=== PATIENT | female | born 1960 | race Caucasian/White ===

== ENCOUNTER 2024-07-22 11:30 | Emergency (ER) | payer MEDICAID, SELFPAY ==
--- NOTE | 2024-07-22 11:34 | XR_ITS ---
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
--- NOTE | 2024-07-22 11:34 | XR_ITS ---
Examination: CT brain head without contrast. 2-D sagittal coronal reconstructions Date and time of exam:July 22, 2024 1312 hours INDICATIONS: Multiple falls today with injury to head CTDI: vol (mGy):47.6 DLP: (mGycm):955 Technique: Multiple CT axial sections of the brain have been obtained, 5 mm slice thickness. Contrast has not been administered. 2-D sagittal, coronal reconstructions have been obtained Low dose protocols were performed. One or more of the following dose reduction techniques were used; automated exposure control, adjustment of the mA and/or KV according to patient size, use of iterative reconstruction technique. Findings: No significant ventricular enlargement. Intra-axial or extra-axial hemorrhage density is not seen. No mass effect or midline shift Basal cisterns are not remarkable. Fourth ventricle is midline. Cranial vault intact. Impression: Negative for acute hemorrhage, mass effect or midline shift
--- NOTE | 2024-07-22 11:34 | XR_ITS ---
Examination: CT cervical spine without contrast 2-D sagittal reconstructions 2-D coronal reconstructions 3-D reconstructions. Exam date and time:July 22, 2024 1312 hours INDICATIONS: Multiple falls today with injury to the neck, neck pain COMPARISON: June 13, 2024 CTDI:vol (mGy) 8.45 DLP: (mGycm) 195 Technique: Multiple 2 mm axial sections of the cervical spine have been obtained. The coronal and sagittal reconstructions have been obtained. 3-D reconstructions have been obtained. Low dose protocols were performed. One or more of the following dose reduction techniques were used; automated exposure control, adjustment of the mA and/or KV according to patient size, use of iterative reconstruction technique. Findings: Axial sections demonstrate intact base of the skull. Mild anterolisthesis C3 on C4 Advanced degenerative disc disease C5-C6 C6-C7 C1 exhibit satisfactory relationship to the odontoid. No acute cervical vertebral body fracture seen. Alignment posterior spinous processes satisfactory. Impression: No acute cervical fracture. Partial visualization left pleural fluid Very heavy calcification and stenosis right carotid artery, recommend correlation with carotid Doppler sonography follow-up
--- NOTE | 2024-07-22 11:34 | EKG_ITS ---
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1960 Requested By: John Levin Order Number: [id number] Reading MD: John Levin Measurements Intervals [place] Rate: 98 P: 60 NV: 152 QRS: 57 QRSD: 106 T: 65 QT: 352 QTc: 450 Interpretive Statements SINUS RHYTHM POSSIBLE LEFT ATRIAL ENLARGEMENT [-0.1mV P WAVE IN V1/V2] INCOMPLETE RIGHT BUNDLE BRANCH BLOCK [90+ ms QRS DURATION, TERMINAL R IN V1/V2, 40+ ms S IN I/aVL/V4/V5/V6] SEPTAL MYOCARDIAL INFARCTION , OF INDETERMINATE AGE [40+ ms Q WAVE IN V1/V2] Compared to ECG 03/10/2024 19:35:23 T-wave abnormality no longer present Possible ischemia no longer present Myocardial infarct finding still present /store/S0/[id number]/ecg/[id number].pdf
--- NOTE | 2024-07-22 11:36 | EDNOTE_ITS ---
ED General RME/HPI General Chief complaint: Fall Stated complaint: FALL Time Seen by Provider: 07/22/24 11:31 Arrival date/time: 07/22/24 11:30 CC: Left hip pain HPI patient presents to the ER via EMS who state the patient has had multiple falls this morning and is now complaining of left hip pain. The patient is an alcoholic and admits to drinking vodka every morning estimates drinking approximately 1 pint this morning already. Patient states she takes aspirin quite frequently but it does not prescribed. Patient denies headache shortness of breath difficulty breathing blurred vision nausea or vomiting. EMS reports stable vital signs also report the patient was ambulated to [facility]. Related Data Home Medications ?Medication ?Instructions ?Recorded ?Confirmed bupropion HCl 300 mg 24 hr tablet, 300 mg PO DAILY 12/07/22 03/11/24 extended release clonazepam 0.5 mg tablet 0.5 mg PO TID PRN Anxiety 09/26/23 03/11/24 cyclobenzaprine 10 mg tablet 10 mg PO HS 03/11/24 03/11/24 fluoxetine 10 mg capsule 20 mg PO QDAY 03/11/24 03/11/24 lamotrigine 25 mg tablet 50 mg PO DAILY 03/11/24 03/11/24 lurasidone 40 mg tablet (Latuda) 40 mg PO DAILY 03/11/24 03/11/24 Previous Rx's ?Medication ?Instructions ?Recorded nicotine 14 mg/24 hr daily 14 mg topical QDAY #28 ea 12/09/22 transdermal patch levothyroxine 150 mcg tablet 150 mcg PO ACBR 30 days #30 tabs 02/10/24 pantoprazole 40 mg tablet,delayed 40 mg PO QDAY #30 tabs 03/13/24 release (Protonix) Allergies Allergy/AdvReac Type Severity Reaction Status Date / Time codeine Allergy Severe Anaphylaxis Verified 12/29/23 08:26 Review of Systems Review of Systems Narrative Review of Systems: GEN: No fever, no chills, no weight loss EYES: No discharge, no visual changes, no pain HEENT: No ear pain, no congestion, no sore throat PULM: No shortness of breath, no cough, no congestion CV: No chest pain, no dyspnea on exertion, no palpitations GI: No nausea, no vomiting, no diarrhea, no pain, no constipation : No frequency, no urgency, no dysuria MUSC/SKEL: + Left hip pain, no other joint pain, no back pain SKIN: No rash PSYCH: No hallucinations, no depression HEME/LYMPH: No easy bleeding or bruising tendencies NEURO: No weakness, no headache Past Medical History Past Medical History NEUROLOGIC: Positive Head Trauma; Negative Neurological Disorders or Seizures CARDIAC: Negative Cardiac Disorders or Congestive Heart Failure RESPIRATORY: Positive Chronic Obstructive Pulmonary Disease (COPD), Asthma and Pneumonia GASTROINTESTINAL: Negative Gastrointestinal Disorders GENITOURINARY: Negative Genitourinary Disorders or Renal Disease MUSCULOSKELETAL: Positive Fractures (Left hip fracture, no surgery) ENT: Positive Head Trauma ENDOCRINE: Positive Endocrine Disorders, Hyperthyroidism and Hypothyroidism; Negative Diabetes Mellitus Type 1 or Diabetes Mellitus Type 2 HEMATOLOGIC: Positive Anemia; Negative Blood Disorders or Sickle Cell Disease PSYCHO/SOCIAL: Positive Recreational Drug Use (marijuana, alcohol), Depression and Anxiety OTHER HISTORY: Positive Falls; Negative Autoimmune Disease, Blood Transfusions, Blood Transfusion Reaction, Anesthesia Reactions, Clostridium Difficile or Cancer Surgical History SURGICAL: Positive Section; Negative Cardiac Surgery Social History SMOKING STATUS: Never smoker SECOND HAND EXPOSURE: No SUBSTANCE USE: does not use ED Exam Narrative Physical exam: [General: Awake alert mildly slurred speech oriented appears not in any acute distress Head normocephalic, no step-off hematoma induration ulceration or depression HEENT: Eyes pupils are PERRLA EOMs are intact no raccoon's eyes Azul sign no rhinorrhea or otorrhea mouth pink dry membranes uvula midline swallow symmetrical phonation is normal. All other subsystems of ATTR within acceptable limits Neck is supple nontender no JVD no edema Chest equal chest rise nontender to palpation Respiratory: Clear to auscultation no wheezes crackles or rubs CV: Rate rhythm is regular no murmurs rubs or clicks Abdomen is soft nontender no masses positive bowel sounds all 4 quadrants Back: No CVA tenderness no spinous process tenderness from cervical spine thoracic and lumbar spine Skin: Intact no petechiae rash induration ulceration or crepitus Extremities: Decreased range of motion of the left hip no pain with pelvic pressure or pelvic squeeze. Moving all other extremities against resistance cap refill less than 2 seconds neurosensory intact Neuro: Awake alert oriented x3 Glascow coma 15 no focal deficits] Course Quality Measures none Orders Category Date Time Status EKG (ED ONLY) *Do not use* NOW Care 07/22/24 11:[address] cervical spine wo con Stat Exams 07/22/24 11:[address] head/brain wo con Stat Exams 07/22/24 11:34 Completed EKG (ED Only) Stat Exams 07/22/24 11:34 Draft XR hip LT w pelvis 2-3V Stat Exams 07/22/24 11:34 Completed B-Type Natriuretic Peptide Stat Lab 07/22/24 11:55 Completed CBC Stat Lab 07/22/24 11:55 Completed Comprehensive Metabolic Panel Stat Lab 07/22/24 11:55 Completed Drug Screen,Urine Stat Lab 07/22/24 12:11 Completed LDH (Lactate Dehydrogenase) Stat Lab 07/22/24 11:55 Completed Magnesium Stat Lab 07/22/24 11:55 Completed Partial Thromboplastin Time Stat Lab 07/22/24 11:55 Completed Prothrombin Time with INR Stat Lab 07/22/24 11:55 Completed Troponin I Stat Lab 07/22/24 11:55 Completed Urinalysis Stat Lab 07/22/24 12:10 Completed Vital Signs Vital signs: Vital Signs Temperature 97.6 F 07/22/24 12:08 Pulse Rate 101 H 07/22/24 12:08 Respiratory Rate 16 07/22/24 12:08 Blood Pressure 106/76 07/22/24 12:08 Pulse Oximetry (%) 96 07/22/24 12:08 Oxygen Delivery Method Room Air 07/22/24 12:08 [facility] Patient data External records reviewed:: [facility] previous records and EMS form Clinical information provided by:: patient and EMS Social determinants that could affect healthcare access:: alcohol use Patient has the following chronic illnesses:: Anxiety depression alcoholism hypothyroidism How is presenting disease/condition affected by chronic disease/condition?: u neffected by Evaluation data The following diagnostics were reviewed and interpreted by me:: lab results, radiology exam(s) and EKG tracing(s) Lab and/or radiology exams considered but not ordered:: EKG performed at 1228 shows ventricular rate of 98 VA interval 152 QRS of 106 QTc of 407 sinus rhythm CBC shows no mild leukocytosis with mild anemia, no thrombocytopenia Coags within acceptable limits CMP shows no significant electrolyte imbalances renal impairment transaminitis or T. bili elevation Troponin is negative BNP is negative Urine is negative for UTI Urine UDS is positive for opiates and THC. CT head C-spine is interpreted me read by radiology negative for any acute finding. Interpretation Summary: Fall, hip contusion Medications Medications considered but not ordered:: None Medication administrations:: None Consultations Consultation(s) initiated? (list below): No Diagnosis Differential Diagnosis ED Complaint MDM: Closed head injury neck fracture hip fracture Most likely diagnosis given after review of the tests above:: Fall polysubstance abuse hip contusion Admission Indicated Admission indicated?: not indicated Explain why admission is indicated or not indicated:: Stable for outpatient follow-up Admission Request Was there a request for admission?: No Disposition Plan Disposition Plan: Discharge Discharge Attestation Discharge Attestation: The patient and all family members were given an opportunity to ask questions and understood the discharge instructions. Discharge instructions specifically effects, indications for sooner follow up or return to the emergency department, and the expected course of current diagnosis. Patient condition: Stable Medical Decision Making Differential Diagnosis Differential Diagnosis: Closed head injury neck fracture hip fracture Lab Data 07/22/24 11:55 07/22/24 11:55 Labs: Lab Results 07/22/24 07/22/24 07/22/24 Range/Units 11:55 12:10 12:11 WBC 12.1 H (3.6-11.0) Thou/mm3 RBC 2.96 L (4.00-5.20) Miln/mm3 Hgb 10.7 L (12.0-16.0) g/dL Hct 31.3 L (36.0-46.0) % MCV 106 H (80-100) fL MCH 36.1 H (25.0-35.0) pg MCHC 34.2 (31.0-37.0) g/dl RDW Std Deviation 66.1 H (36.4-46.3) fL Plt Count 575 H D (140-440) Thou/mm3 Neut % (Auto) 68 (37-80) % Lymph % (Auto) 22 (10-50) % [place] % (Auto) 8 (0-12) % Eos % (Auto) 0 (0-10) % Baso % (Auto) 1 (0-2.5) % Neut # (Auto) 8.2 H (1.8-7.7) Thou/mm3 Lymph # (Auto) 2.7 (1.0-4.8) Thou/mm3 [place] # (Auto) 1.0 H (0.0-0.8) Thou/mm3 Eos # (Auto) 0.1 (0.0-0.5) Thou/mm3 Baso # (Auto) 0.1 (0.0-0.2) Thou/mm3 Immature Gran # (Auto) 0.09 H (0.00-0.00) Thou/mm3 Absolute Nucleated RBC 0.00 (0.00-0.00) Thou/mm3 Immature Gran % 1 H (0-0) % Nucleated RBC % 0 (0) /100 WBC PT 10.6 (9.0-12.2) Seconds INR 1.0 (0.9-1.3) APTT 29.2 (22.0-36.0) Seconds Sodium 136 (136-145) mMol/L Potassium 3.7 (3.4-5.1) mMol/L Chloride 97 L (98-107) mMol/L Carbon Dioxide 24.9 (20.0-31.0) mMol/L Anion Gap 14 (7-16) BUN 8 L (9-23) mg/dL Creatinine 0.5 L (0.6-1.3) mg/dL Estim Creat Clear Calc 111.5 (>60) mL/min eGFR > 60 (60 - ) See Note BUN/Creatinine Ratio 16 (12-20) Ratio Glucose 85 (74-106) mg/dL Calculated Osmolality 269 L (275-295) Calcium 9.1 (8.3-10.6) mg/dL Corrected Calcium 9.1 (8.5-10.1) mg/dL Magnesium 1.9 (1.6-2.6) mg/dL Total Bilirubin 0.4 (0.3-1.2) mg/dL AST 33 (0-34) U/L ALT 13 (10-49) U/L Alkaline Phosphatase 93 (46-116) U/L Lactate Dehydrogenase 230 (120-246) U/L Troponin I < 0.020 (0.0-0.045) ng/mL B-Natriuretic Peptide 42 (0-100) pg/mL Total Protein 6.8 (5.7-8.2) gm/dL Albumin 4.3 (3.4-4.8) gm/dL Globulin 2.5 (2.3-3.5) gm/dL Albumin/Globulin Ratio 1.7 (1.2-2.2) Ur Collection Type Clean Catch Urine Color Yellow (Lt Yel-Yel) Urine Clarity Clear (Clear/Hazy) Urine pH 6.5 (5.0-7.0) Ur Specific [place] 1.025 (1.001-1.035) Urine Protein Trace (Neg - Trace) Urine Glucose (UA) Negative (Negative) Urine Ketones Negative (Negative) Urine Blood 1+ A (Negative) Urine Nitrite Negative (Negative) Urine Bilirubin Negative (Negative) Urine Urobilinogen (Auto) Negative (0.0-1.0) mg/dL Ur Leukocyte Esterase Negative (Negative) Urine RBC 3 (0-3) /hpf Urine WBC 2 (0-5) /hpf Ur Squamous Epith Cells 1 (0-5) /hpf Urine Bacteria None (None) Urine Opiates Screen Positive A (Negative) Urine Fentanyl Screen Negative (Negative) Ur Barbiturates Screen Negative (Negative) U Amphetamin/Meth Scrn Negative (Negative) U Benzodiazepines Scrn Negative (Negative) U Cocaine Metab Screen Negative (Negative) U Marijuana (THC) Screen Positive A (Negative) Discharge Plan Plan Patient Disposition: HOME (Self Care) Patient condition on transfer: Stable Prescriptions/Referrals Prescriptions/Med Rec: No Action clonazepam 0.5 mg tablet 0.5 mg PO TID PRN (Reason: Anxiety) bupropion HCl 300 mg tablet extended release 24 hr 300 mg PO DAILY Patient Comments: take 1 tablet by mouth once daily nicotine 14 mg/24 hr patch 24 hour 14 mg topical QDAY Qty: 28 0RF fluoxetine 10 mg Capsule 20 mg PO QDAY lamotrigine 25 mg Tablet 50 mg PO DAILY cyclobenzaprine 10 mg Tablet 10 mg PO HS lurasidone [Latuda] 40 mg Tablet 40 mg PO DAILY Rx Instructions: take with 350 caloric food pantoprazole [Protonix] 40 mg tablet,delayed release (DR/EC) 40 mg PO QDAY Qty: 30 1RF levothyroxine 150 mcg Tablet 150 mcg PO ACBR 30 Days Qty: 30 2RF Referrals: Tavares Saul MD [Primary Care Provider] - In 1 week Problem List Clinical Impression: Fall, Contusion of hip, Polysubstance abuse Patient/Caregiver Discharge Instructions Education Materials: Understanding the Disease of Addiction, Bone Contusion, ED Fall with Uncertain Cause Additional Instructions: Avoid THC alcohol and opioids follow-up with your primary care provider. Print Language: Ukrainian Stand Alone Forms: Rosa Isela Award Info., Work/School Release, Patient Portal Info Letter Attestation MD Attestation The patient was seen by the midlevel practitioner. I, the co-signing physician, was present during the entire ER visit. While I did not physically examine the patient, I was available for consultation as needed.
[2024-07-22 11:40] VITALS: PULSE 99; O2SAT 98; BMI 20.8
[2024-07-22 12:08] VITALS: BP 106/76; PULSE 101; RESP 16; TEMP 36.4; O2SAT 96
[2024-07-22 12:11] LABS: Basophils # (Auto) 0.1 Thou/mm3 (0.0-0.2); Basophils % (Auto) 1 % (0-2.5); Eosinophils # (Auto) 0.1 Thou/mm3 (0.0-0.5); Eosinophils % (Auto) 0 % (0-10); Hematocrit 31.3 % (36.0-46.0); Hemoglobin 10.7 g/dL (12.0-16.0); Immature Granulocytes % (Auto) 1 % (0-0); Immature Granulocytes Auto 0.09 Thou/mm3 (0.00-0.00); Lymphocytes # (Auto) 2.7 Thou/mm3 (1.0-4.8); Lymphocytes % (Auto) 22 % (10-50); Mean Corpuscular HGB Conc 34.2 g/dl (31.0-37.0); Mean Corpuscular Hemoglobin 36.1 pg (25.0-35.0); Mean Corpuscular Volume 106 fL (80-100); Monocytes % (Auto) 8 % (0-12); Neutrophils # (Auto) 8.2 Thou/mm3 (1.8-7.7); Neutrophils % (Auto) 68 % (37-80); Nucleated Red Blood Cell % 0 /100 WBC (0); Platelet Count 575 Thou/mm3 (140-440); RDW Standard Deviation 66.1 fL (36.4-46.3); Red Blood Count 2.96 Miln/mm3 (4.00-5.20); White Blood Count 12.1 Thou/mm3 (3.6-11.0)
[2024-07-22 12:16] LABS: Collection Type, Urine Clean Catch
[2024-07-22 12:19] LABS: Bilirubin,Urine Negative (Negative); Blood,Urine 1+ (Negative); Clarity,Urine Clear (Clear/Hazy); Color,Urine Yellow (Lt Yel-Yel); Glucose, Urine Negative (Negative); Ketones,Urine Negative (Negative); Leukocyte Esterase,Urine Negative (Negative); Nitrite,Urine Negative (Negative); PH,Urine 6.5 (5.0-7.0); Protein,Urine Trace (Neg - Trace); RBC,Urine 3 /hpf (0-3); Specific Gravity,Urine 1.025 (1.001-1.035); Squamous Epithelial Cell,Urine 1 /hpf (0-5); Urobilinogen,Urine Negative mg/dL (0.0-1.0); WBC,Urine 2 /hpf (0-5)
[2024-07-22 12:25] LABS: Partial Thromboplastin Time 29.2 Seconds (22.0-36.0); Prothrombin Time 10.6 Seconds (9.0-12.2)
--- NOTE | 2024-07-22 12:29 | PC.NURSE ---
PT BROUGHT IN BY AMBULANCE AFTER FALL AT HOME. PER REPORT PT DID ADMIT TO DRINKING 1 PINT OF VODKA DAILY. PT DOES C/O PAIN TO THE LEFT HIP AND DID STATE TO HAVE A LEFT HIP FX. PT STATES THAT SHE WAS AT [facility] RECENTLY AFTER FALL AND 6 BROKEN RIBS. PT IS A/O X4 AND A GCS OF 15. PT DOES C/O PAIN TO LEFT HIP AND RATES IT AT 8/10 AT THIS TIME. MAGDALENE WILEY SEEN PT IN AMBULANCE BAY FOR ASSESSMENT. WILL FOLLOW THROUGH WITH ORDERS.
[2024-07-22 12:31] LABS: Amphetamine/Methamp Scrn,U Negative (Negative); Barbiturate Screen,Urine Negative (Negative); Benzodiazepines Screen,Urine Negative (Negative); Benzoylecgonine Screen, Ur Negative (Negative); Fentanyl Screen,Urine Negative (Negative); Opiate Screen,Urine Positive (Negative); THC Screen,Urine Positive (Negative)
[2024-07-22 12:33] LABS: Alanine Aminotransferase 13 U/L (10-49); Albumin, Serum 4.3 gm/dL (3.4-4.8); Albumin/Globulin Ratio 1.7 (1.2-2.2); Alkaline Phosphatase 93 U/L (46-116); Anion Gap 14 (7-16); Aspartate Amino Transferase 33 U/L (0-34); BUN/Creatinine Ratio 16 Ratio (12-20); Bilirubin,Total 0.4 mg/dL (0.3-1.2); Blood Urea Nitrogen 8 mg/dL (9-23); Calcium 9.1 mg/dL (8.3-10.6); Calcium (Corrected) 9.1 mg/dL (8.5-10.1); Carbon Dioxide 24.9 mMol/L (20.0-31.0); Chloride 97 mMol/L (98-107); Creatinine (Component) 0.5 mg/dL (0.6-1.3); Estimated Creatinine Clearance 111.5 mL/min (>60); Globulin 2.5 gm/dL (2.3-3.5); Glucose 85 mg/dL (74-106); LDH (Lactate Dehydrogenase) 230 U/L (120-246); Magnesium 1.9 mg/dL (1.6-2.6); Osmolality,Calculated 269 (275-295); Potassium 3.7 mMol/L (3.4-5.1); Sodium 136 mMol/L (136-145); Total Protein 6.8 gm/dL (5.7-8.2); Troponin I < 0.020 ng/mL (0.0-0.045); eGFR > 60 See Note
[2024-07-22 12:34] LABS: B-Type Natriuretic Peptide 42 pg/mL (0-100)
[2024-07-22 14:23] VITALS: BP 131/73; PULSE 97; O2SAT 95
== END 2024-07-22 14:26 | disposition home or self-care (01) ==
PROVIDERS: Registered Nurse General Practice; Emergency Provider Emergency Medicine; PCP Family Medicine
DX: S70.02XA Contusion of left hip, initial encounter (principal); F19.10 Other psychoactive substance abuse, uncomplicated; S09.90XA Unspecified injury of head, initial encounter; S19.9XXA Unspecified injury of neck, initial encounter; I45.10 Unspecified right bundle-branch block; W19.XXXA Unspecified fall, initial encounter
CPT/HCPCS: 36415; 70450; 72125; 73502; 80053; 80307; 81001; 83615; 83735; 83880; 84484; 85025; 85610; 85730; 93005; 99284

== ENCOUNTER 2024-08-02 08:43 | Outpatient (AMB) | payer MEDICARE, MEDICAID, SELFPAY ==
[2024-08-02 09:21] VITALS: BP 176/95; PULSE 56; RESP 19; TEMP 36.3; O2SAT 95; BMI 22.3
--- NOTE | 2024-08-02 09:21 | PD.ORTHCLVIS ---
Vital signs 08/02/24 09:21 Height 1.73 m Height Method Stated Weight 66.82 kg Weight Measurement Method Standing Scale BMI 22.3 BP 176/95 H Blood Pressure Source Automatic Cuff Blood Pressure Location Right Upper Arm Position Sitting Respiration 19 Pulse 56 L Pulse Source Monitor Temp 97.3 F Temp Source Temporal Artery Scan Pulse Oximetry (%) 95 Oxygen Delivery Method Room Air Med/Allergies Allergies & Medications Allergies codeine Allergy (Severe, Verified 08/02/24 09:22) Anaphylaxis Medication Reconciliation bupropion HCl 300 mg 24 hr tablet, extended release 300 mg PO DAILY 12/07/22 [History Confirmed 08/02/24] nicotine 14 mg/24 hr daily transdermal patch 14 mg topical QDAY #28 ea 12/09/22 [Rx Confirmed 08/02/24] clonazepam 0.5 mg tablet 0.5 mg PO TID PRN Anxiety 09/26/23 [History Confirmed 08/02/24] levothyroxine 150 mcg tablet 150 mcg PO ACBR 30 days #30 tabs 02/10/24 [Rx Confirmed 08/02/24] cyclobenzaprine 10 mg tablet 10 mg PO HS 03/11/24 [History Confirmed 08/02/24] fluoxetine 10 mg capsule 20 mg PO QDAY 03/11/24 [History Confirmed 08/02/24] lamotrigine 25 mg tablet 50 mg PO DAILY 03/11/24 [History Confirmed 08/02/24] lurasidone 40 mg tablet (Latuda) 40 mg PO DAILY 03/11/24 [History Confirmed 08/02/24] pantoprazole 40 mg tablet,delayed release (Protonix) 40 mg PO QDAY #30 tabs 03/13/24 [Rx Confirmed 08/02/24] Subjective Visit Visit for: follow up visit Immunization / Flu Flu Vaccine in the Last 12 Months: No Flu Vaccine Exclusion Criteria: No Exclusion Criteria History of Present Illness Chief complaint: WORSENING HIP PAIN Patient is a 63-year-old female with a ground-level fall . She had an MRI that demonstrated intertrochanteric fracture. This was treated nonoperatively. She does have bilateral hip osteoarthritis as well. She has had a longstanding history of bilateral hip pain and groin pain. She reports the pain is worse on the left hip. There is a lot of pain in the groin thigh as well as the knee. She reports the last knee injections have helped tremendously. Since we last saw her, she had another fall. She reports the left hip pain is excruciating. It is affecting her quality life and happiness. She cannot put on socks and shoes. She has tried anti-inflammatories Personal History Occupation: na Hobbies: reading [employer] PMH: smoker and cigarettes qd (specify) (1 pack a day) Pain Pain level (0-10): 8 Pain duration: CONSTANT Pain location: groin Pain quality: sharp, dull and aching Pain timing: increases with activity Associated signs & symptoms: stiffness Ambulatory data Ambulatory device: none Treatments Number of previous injections: 1 Improvement with previous injections: No Number of Physical Therapy sessions: 0 Improvement with PT: No Improvement with NSAIDS: n/a Review of Systems Review of Systems: All systems negative unless otherwise noted in HPI. Exam Exam Patient is in no acute distress and is cooperative with the examination today. Patient has a normal mood and affect. Breathing is nonlabored. In no respiratory distress. Bilateral extremities were evaluated and demonstrates sensation intact to light touch. Palpable pedal pulses are present. No significant edema is present. Right hip is painful with logroll. Leg lengths are equal. She is tender with rotation of internal rotation as well as 20 degrees of external rotation Left hip is also painful with logroll. She is 10 degrees internal rotation is painful as we ll as 30 degrees of external rotation. Left knee range of motion 0 to 110 degrees. She is tender to palpation medially X-rays of the knee and hip were reviewed. The x-rays demonstrate Mild joint space narrowing of the left knee. X-rays of bilateral hips demonstrate severe joint space narrowing and complete obliteration of the joint space Bilaterally. There is a fracture of the greater trochanter On the left that is displaced. The CT scan of the hip from 12/28/2023 demonstrates an isolated greater trochanteric fracture. There Does not appear to be extension into the actual intertrochanteric region Assessment and Plan Problem List (1) Bilateral primary osteoarthritis of hip: Status: Acute Plan: Patient is a 63-year-old female with bilateral hip osteoarthritis. 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 The greater trochanteric fracture is displaced but the rest of the femur appears to be intact. She will need medical clearance prior to undergoing surgery. We discussed total hip replacement great detail this affecting her quality life and happiness. We discussed that she is at high risk for limb that she has a Trendelenburg gait currently and has a displaced greater trochanter fracture. We also discussed that she is high risk for infection as well as dislocation as of this fracture. We will plan for a total hip replacement on the left given her failure conservative management The nature and purpose of the total hip replacement, alternative method(s) of treatment, the material risks involved, and the possibility of complications were fully explained to the patient. The patient does NOT have any of the following contraindications to COLBY: - Active infection of the hip joint, OR - Active systemic bacteremia, OR - Active skin infection or open wound at surgical site, OR - Neuropathic arthritis, OR - Severe, rapidly progressive neurological disease, OR - Severe medical condition that makes risks of the surgery outweigh the potential benefit The patient was told the most common risks and complications associated with a total hip replacement include, but are not limited to: blood clots in the leg, fatal pulmonary embolism, dislocation of the prosthesis, intraoperative and postoperative fractures of the femur or acetabulum, infection, failure of the prosthesis or grafting materials, complications from anesthesia, reactions to blood transfusions, postoperative leg length inequality, instability of the hip replacement, nerve damage or injury, vascular injury, delayed wound healing, infection, other injury or even . In addition, there are risks associated with anesthesia given during this operation. Also, the patient was told that after undergoing a total hip replacement there may still be persistent pain or disability. The patient was informed that the success of this operation in part depends upon the mechanical devices which are going to be implanted and that these devices can fail or malfunction, and may need to be repaired or replaced and there are no guarantees as to the longevity of this device or its parts and that it or its parts could fail prematurely. The patient was also notified that during the course of surgery, there may be a need to use bone graft from donors, and that any bone graft used will be carefully screened for communicable diseases, including AIDS, hepatitis, Meño-Creutzfeldt, or other diseases, but despite the screening procedures, there is a small chance that they could contract one of these diseases. Finally, the patient was asked to follow completely and fully with all advice and recommended treatments, and that recovery and ultimate outcome are affected by their compliance with recommended treatment. We discussed the risks, benefits and treatment alternatives, and the patient is interested in proceeding with surgery. We will try to set this up as expeditiously as possible. (2) Intertrochanteric fracture of left hip: Status: Acute (3) Arthritis of knee, left: Status: Acute Office Procedures GNS Level of Care Nursing/Assessment Patient Status: Established Patient Nursing Assessment/Reassesment: Medication Reconciliation, Update PMH in EMR and Vital Signs Coordination of Care: Complex Care and Chronic Disease 1-5, Education Complex Pt/Fam, Consent,records obtained, informed consent, Results/Orders obtained and Staff clarify orders Established Patient Charge Established Patient Point Assignment: 95 Established Patient Point Charge: EP Level 3 (80-115) Past Medical History Past Medical History Have you ever been diagnosed with any of the following: Neurological Problems Seizures: No Head Trauma: Yes Cardiology Problems Congestive Heart Failure: No Respiratory Problems Chronic Obstructive Pulmonary Disease (COPD): Yes Asthma: Yes Pneumonia: Yes Genital/Urinary Problems Renal Disease: No Musculoskeletal Problems Fractures: Yes Endocrine Problems Diabetes Mellitus Type 1: No Diabetes Mellitus Type 2: No Hyperthyroidism: Yes Hypothyroidism: Yes Blood Problems Anemia: Yes Sickle Cell Disease: No Psychologic Problems Recreational Drug Use: Yes Depression: Yes Anxiety: Yes Other Problems Falls: Yes Blood Transfusions: No Blood Transfusion Reaction: No Anesthesia Reactions: No Clostridium Difficile: No Cancer: No
== END 2024-08-02 09:50 | disposition home or self-care (01) ==
PROVIDERS: PCP Family Medicine; Referring Provider Family Medicine; Supervising Provider Orthopaedic Surgery Adult Reconstructive Orthopaedic Surgery; Visit Provider Orthopaedic Surgery Adult Reconstructive Orthopaedic Surgery
DX: M16.0 Bilateral primary osteoarthritis of hip (principal); M17.12 Unilateral primary osteoarthritis, left knee; S72.142D Displaced intertrochanteric fracture of left femur, subsequent encounter for closed fracture with routine healing; E03.9 Hypothyroidism, unspecified; W19.XXXD Unspecified fall, subsequent encounter
CPT/HCPCS: 99213; 99214; G0463

== ENCOUNTER 2024-10-04 08:28 | Outpatient (AMB) | payer MEDICARE, MEDICAID, SELFPAY ==
[2024-10-04 08:57] VITALS: BP 155/84; PULSE 83; RESP 19; TEMP 36.3; O2SAT 98; BMI 20.7
--- NOTE | 2024-10-04 08:57 | ORTHONT_ITS ---
Vital signs 10/04/24 08:57 Height 1.73 m Height Method Stated Weight 61.915 kg Weight Measurement Method Standing Scale BMI 20.7 BP 155/84 H Blood Pressure Source Automatic Cuff Blood Pressure Location Left Upper Arm Position Sitting Respiration 19 Pulse 83 Pulse Source Monitor Temp 97.4 F Temp Source Temporal Artery Scan Pulse Oximetry (%) 98 Oxygen Delivery Method Room Air Med/Allergies Allergies & Medications Allergies codeine Allergy (Severe, Verified 10/04/24 08:59) Anaphylaxis Medication Reconciliation bupropion HCl 300 mg 24 hr tablet, extended release 300 mg PO DAILY 12/07/22 [History Confirmed 10/04/24] nicotine 14 mg/24 hr daily transdermal patch 14 mg topical QDAY #28 ea 12/09/22 [Rx Confirmed 10/04/24] clonazepam 0.5 mg tablet 0.5 mg PO TID PRN Anxiety 09/26/23 [History Confirmed 10/04/24] levothyroxine 150 mcg tablet 150 mcg PO ACBR 30 days #30 tabs 02/10/24 [Rx Confirmed 10/04/24] cyclobenzaprine 10 mg tablet 10 mg PO HS 03/11/24 [History Confirmed 10/04/24] fluoxetine 10 mg capsule 20 mg PO QDAY 03/11/24 [History Confirmed 10/04/24] lamotrigine 25 mg tablet 50 mg PO DAILY 03/11/24 [History Confirmed 10/04/24] lurasidone 40 mg tablet (Latuda) 40 mg PO DAILY 03/11/24 [History Confirmed 10/04/24] pantoprazole 40 mg tablet,delayed release (Protonix) 40 mg PO QDAY #30 tabs 03/13/24 [Rx Confirmed 10/04/24] Exam Exam Patient is in no acute distress and is cooperative with the examination today. Patient has a normal mood and affect. Breathing is nonlabored. In no respiratory distress. Bilateral extremities were evaluated and demonstrates sensation intact to light touch. Palpable pedal pulses are present. No significant edema is present. Right hip is painful with logroll. Leg lengths are equal. She is tender with rotation of internal rotation as well as 20 degrees of external rotation Left hip is also painful with logroll. She is 10 degrees internal rotation is painful as we ll as 30 degrees of external rotation. Left knee range of motion 0 to 110 degrees. She is tender to palpation medially X-rays of the knee and hip were reviewed. The x-rays demonstrate Mild joint space narrowing of the left knee. X-rays of bilateral hips demonstrate severe joint space narrowing and complete obliteration of the joint space Bilaterally. There is a fracture of the greater trochanter On the left that is displaced. The CT scan of the hip from 12/28/2023 demonstrates an isolated greater trochanteric fracture. There Does not appear to be extension into the actual intertrochanteric region Assessment and Plan Problem List (1) Bilateral primary osteoarthritis of hip: Status: Acute Plan: Patient is a 63-year-old female with bilateral hip osteoarthritis. 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 The greater trochanteric fracture is displaced but the rest of the femur appears to be intact. She will need medical clearance prior to undergoing surgery. We discussed total hip replacement great detail this affecting her quality life and happiness. We discussed that she is at high risk for limb that she has a Trendelenburg gait currently and has a displaced greater trochanter fracture. We also discussed that she is high risk for infection as well as dislocation as of this fracture. We will plan for a total hip replacement on the left given her failure conservative management. We will have revision stems available as well as cables. The nature and purpose of the total hip replacement, alternative method(s) of treatment, the material risks involved, and the possibility of complications were fully explained to the patient. The patient does NOT have any of the following contraindications to COLBY: - Active infection of the hip joint, OR - Active systemic bacteremia, OR - Active skin infection or open wound at surgical site, OR - Neuropathic arthritis, OR - Severe, rapidly progressive neurological disease, OR - Severe medical condition that makes risks of the surgery outweigh the potential benefit The patient was told the most common risks and complications associated with a total hip replacement include, but are not limited to: blood clots in the leg, fatal pulmonary embolism, dislocation of the prosthesis, intraoperative and postoperative fractures of the femur or acetabulum, infection, failure of the prosthesis or grafting materials, complications from anesthesia, reactions to blood transfusions, postoperative leg length inequality, instability of the hip replacement, nerve damage or injury, vascular injury, delayed wound healing, infection, other injury or even . In addition, there are risks associated with anesthesia given during this operation. Also, the patient was told that after undergoing a total hip replacement there may still be persistent pain or disability. The patient was informed that the success of this operation in part depends upon the mechanical devices which are going to be implanted and that these devices can fail or malfunction, and may need to be repaired or replaced and there are no guarantees as to the longevity of this device or its parts and that it or its parts could fail prematurely. The patient was also notified that during the course of surgery, there may be a need to use bone graft from donors, and that any bone graft used will be carefully screened for communicable diseases, including AIDS, hepatitis, Meño-Creutzfeldt, or other diseases, but despite the screening procedures, there is a small chance that they could contract one of these diseases. Finally, the patient was asked to follow completely and fully with all advice and recommended treatments, and that recovery and ultimate outcome are affected by their compliance with recommended treatment. We discussed the risks, benefits and treatment alternatives, and the patient is interested in proceeding with surgery. We will try to set this up as expeditiously as possible. (2) Intertrochanteric fracture of left hip: Status: Acute (3) Arthritis of knee, left: Status: Acute Advanced Care Planning Discussion Advance care planning discussed with:: patient Office Procedures GNS Level of Care Nursing/Assessment Patient Status: Established Patient Nursing Assessment/Reassesment: Medication Reconciliation, Update PMH in EMR and Vital Signs Coordination of Care: Complex Care/Chronic Disease 5 or more, Education Complex Pt/Fam, Consent,records obtained, informed consent, Results/Orders obtained and Staff clarify orders Established Patient Charge Established Patient Point Assignment: 105 Established Patient Point Charge: EP Level 3 (80-115) [place] Intake Visit Data Collection New Patient or Established: Established Patient (seen at [facility] within 3 years) Reason for Visit:: PRE OP LEFT HIP REPLACEMENT Fo[employer] Curer Required: No PCP or OBGYN visit in last 3 months: Yes Do You Feel Safe at Home: Yes Questionairres Past Medical History Past Medical History Have you ever been diagnosed with any of the following: Neurological Problems Seizures: No Head Trauma: Yes Cardiology Problems Congestive Heart Failure: No Respiratory Problems Chronic Obstructive Pulmonary Disease (COPD): Yes Asthma: Yes Pneumonia: Yes Smoking: Yes Smoking Cessation Counseling: Yes Smoking Exposure: Yes Genital/Urinary Problems Renal Disease: No Musculoskeletal Problems Fractures: Yes Endocrine Problems Diabetes Mellitus Type 1: No Diabetes Mellitus Type 2: No Hyperthyroidism: Yes Hypothyroidism: Yes Blood Problems Anemia: Yes Sickle Cell Disease: No Psychologic Problems Recreational Drug Use: Yes Depression: Yes Anxiety: Yes Other Problems Falls: Yes Blood Transfusions: No Blood Transfusion Reaction: No Anesthesia Reactions: No Clostridium Difficile: No Cancer: No Subjective Visit Visit for: hip (PRE OP FOR LEFT HIP REPLACEMENT ) Immunization / Flu Flu Vaccine in the Last 12 Months: No Flu Vaccine Exclusion Criteria: No Exclusion Criteria History of Present Illness Chief complaint: PRE OP LEFT HIP REPLACEMENT Patient is a 63-year-old female with a ground-level fall . She had an MRI that demonstrated intertrochanteric fracture over a year ago. This was treated nonoperatively by another surgeon. She does have bilateral hip osteoarthritis and AVMN as well. She has had a longstanding history of bilateral hip pain and groin pain. She reports the pain is worse on the left hip. There is a lot of pain in the groin thigh as well as the knee. She reports the last knee injections have helped tremendously. Since we last saw her, she had another fall. She reports the left hip pain is excruciating. It is affecting her quality life and happiness. She cannot put on socks and shoes. She has tried anti-inflammatories Personal History Red flag PMH: smoker BMI Counceling provided: Yes Pain Pain level (0-10): 8 Pain duration: CONSTANT Pain quality: aching Pain timing: night, increases with activity and stairs Associated signs & symptoms: none Ambulatory data Ambulatory device: none Treatments Improvement with previous injections: No Improvement with PT: No Improvement with NSAIDS: no Review of Systems Review of Systems: All systems negative unless otherwise noted in HPI.
== END 2024-10-04 09:20 | disposition home or self-care (01) ==
LOC: HODSRG 08:28
PROVIDERS: PCP Family Medicine; Referring Provider Family Medicine; Supervising Provider Orthopaedic Surgery Adult Reconstructive Orthopaedic Surgery; Visit Provider Orthopaedic Surgery Adult Reconstructive Orthopaedic Surgery
DX: M16.0 Bilateral primary osteoarthritis of hip (principal); S72.112D Displaced fracture of greater trochanter of left femur, subsequent encounter for closed fracture with routine healing; W18.30XD Fall on same level, unspecified, subsequent encounter; M17.12 Unilateral primary osteoarthritis, left knee
CPT/HCPCS: 99213; G0463

== ENCOUNTER → 2024-10-09 | Outpatient (CLI) | payer MEDICARE, MEDICAID, SELFPAY ==
--- NOTE | 2024-10-09 08:39 | XR_ITS ---
Examination: CT bilateral lower extremities, without contrast. 2-D sagittal reconstructions. 2-D coronal reconstructions. 3-D reconstructions. Date and time of exam:October 09, 2024 0915 hours INDICATIONS: Patient fell one year ago with injury to left hip, left hip pain CTDI: vol (mGy):7.86 DLP: (mGycm):502 Technique: Multiple 1.25 mm axial sections of the bilateral lower extremities without intravenous contrast have been obtained. 2-D sagittal and coronal reconstructions have been obtained. 3-D reconstructions have been obtained. Low dose protocols were performed. One or more of the following dose reduction techniques were used; automated exposure control, adjustment of the mA and/or KV according to patient size, use of iterative reconstruction technique. Findings: Prominent osteopenia Bilateral severe hip osteoarthritis, severe joint space narrowing and marked subarticular cyst formation No acute fracture Mild to moderate narrowing medial joint spaces knees Mild chronic lateral subluxation of the right and left patella No fractures IMPRESSION: Bilateral severe hip osteoarthritis
== END | disposition home or self-care (01) ==
LOC: CDIM 08:22
PROVIDERS: PCP Family Medicine; Referring Provider Orthopaedic Surgery Adult Reconstructive Orthopaedic Surgery; Visit Provider Orthopaedic Surgery Adult Reconstructive Orthopaedic Surgery
DX: M16.0 Bilateral primary osteoarthritis of hip (principal)
CPT/HCPCS: 72192; 73700

== ENCOUNTER → 2024-10-15 | Outpatient (CLI) | payer MEDICARE, MEDICAID, SELFPAY ==
[2024-10-15 09:42] VITALS: BMI 20.6
[2024-10-15 10:31] LABS: Basophils # (Auto) 0.1 Thou/mm3 (0.0-0.2); Basophils % (Auto) 1 % (0-2.5); Eosinophils # (Auto) 0.1 Thou/mm3 (0.0-0.5); Eosinophils % (Auto) 1 % (0-10); Hematocrit 39.2 % (36.0-46.0); Hemoglobin 13.4 g/dL (12.0-16.0); Immature Granulocytes % (Auto) 1 % (0-0); Immature Granulocytes Auto 0.06 Thou/mm3 (0.00-0.00); Lymphocytes # (Auto) 2.9 Thou/mm3 (1.0-4.8); Lymphocytes % (Auto) 24 % (10-50); Mean Corpuscular HGB Conc 34.2 g/dl (31.0-37.0); Mean Corpuscular Hemoglobin 35.5 pg (25.0-35.0); Mean Corpuscular Volume 104 fL (80-100); Monocytes # (Auto) 1.1 Thou/mm3 (0.0-0.8); Monocytes % (Auto) 9 % (0-12); Neutrophils # (Auto) 7.9 Thou/mm3 (1.8-7.7); Neutrophils % (Auto) 65 % (37-80); Nucleated Red Blood Cell % 0 /100 WBC (0); Platelet Count 443 Thou/mm3 (140-440); RDW Standard Deviation 52.2 fL (36.4-46.3); Red Blood Count 3.77 Miln/mm3 (4.00-5.20); White Blood Count 12.1 Thou/mm3 (3.6-11.0)
[2024-10-15 10:37] LABS: Alanine Aminotransferase 16 U/L (10-49); Albumin, Serum 4.4 gm/dL (3.4-4.8); Albumin/Globulin Ratio 1.8 (1.2-2.2); Alkaline Phosphatase 93 U/L (46-116); Anion Gap 9 (7-16); Aspartate Amino Transferase 34 U/L (0-34); BUN/Creatinine Ratio 13 Ratio (12-20); Bilirubin,Total 0.5 mg/dL (0.3-1.2); Blood Urea Nitrogen 8 mg/dL (9-23); Calcium 9.8 mg/dL (8.3-10.6); Calcium (Corrected) 9.8 mg/dL (8.5-10.1); Carbon Dioxide 27.9 mMol/L (20.0-31.0); Chloride 95 mMol/L (98-107); Creatinine (Component) 0.6 mg/dL (0.6-1.3); Estimated Creatinine Clearance 90.7 mL/min (>60); Globulin 2.5 gm/dL (2.3-3.5); Glucose 69 mg/dL (74-106); Osmolality,Calculated 260 (275-295); Partial Thromboplastin Time 30.9 Seconds (22.0-36.0); Potassium 3.8 mMol/L (3.4-5.1); Prothrombin Time 10.8 Seconds (9.0-12.2); Sodium 132 mMol/L (136-145); Total Protein 6.9 gm/dL (5.7-8.2); eGFR > 60 See Note
--- NOTE | 2024-10-15 13:12 | SUR.PREOP ---
WBC 12.1, Dr Hallman notified and Ok to proceed.
--- NOTE | 2024-10-29 18:36 | PC.NURSE ---
CALLED PT, NO ANSWER. D/C'D
== END | disposition home or self-care (01) ==
LOC: SLAB 11-07 08:36
PROVIDERS: Anesthesiology; PCP Family Medicine; Referring Provider Orthopaedic Surgery Adult Reconstructive Orthopaedic Surgery; Visit Provider Orthopaedic Surgery Adult Reconstructive Orthopaedic Surgery
DX: Z01.812 Encounter for preprocedural laboratory examination (principal); M16.52 Unilateral post-traumatic osteoarthritis, left hip
CPT/HCPCS: 36415; 80053; 85025; 85610; 85730; J7120; J7999

== ENCOUNTER 2024-10-29 16:53 | Emergency (ER) | payer MEDICARE, MEDICAID, SELFPAY ==
--- NOTE | 2024-10-29 16:58 | EKG_ITS ---
[facility] Test Date: 2024-10-29 Pat Name: LINDSAY SOUTH Department: Room: - Gender: Female [employer] Consultant: : 1960 Requested By: ED Temporary Provider Order Number: [id number] Reading MD: ED Temporary Provider Measurements Intervals [place] Rate: 90 P: 65 NV: 159 QRS: 15 QRSD: 97 T: 52 QT: 360 QTc: 441 Interpretive Statements SINUS RHYTHM NONSPECIFIC T-WAVE ABNORMALITY Compared to ECG 07/22/2024 12:28:47 T-wave abnormality now present Incomplete right bundle-branch block no longer present Myocardial infarct finding no longer present /store/S0/[id number]/ecg/[id number].pdf
[2024-10-29 17:02] VITALS: BP 94/68; PULSE 93; RESP 18; TEMP 36.5; O2SAT 94; BMI 26.9
--- NOTE | 2024-10-29 17:04 | XR_ITS ---
Examination: PA lateral chest 2 views TECHNIQUE: Upright PA lateral chest 2 views Exam date and time: October 29, 2024 1705 hours Comparison June 13, 2024 INDICATIONS: Chest pain today, shortness of breath 3 days FINDINGS: Soft areas of opacity in the left mid and upper lung zone, which may represent nodules, pneumonia versus fractures of the posterior left sixth, seventh and ninth ribs Right lung clear Normal heart size IMPRESSION: Suggest CT chest without contrast follow-up to differentiate early pneumonia , pulmonary masses in the left lung, versus left rib fractures
--- NOTE | 2024-10-29 17:05 | PD.EDRME ---
Rapid Medical Screening Exam E Arrival date/time: 10/29/24 16:53 64-year-old female with a history of COPD presents to the emergency room with a chief complaint of shortness of breath, 7 out of 10 sternal chest pain, palpitations x 3 days. I have greeted and performed a focused initial assessment of this patient. A comprehensive ED assessment and evaluation of the patient, analysis of all test results, and completion of the medical decision making process will be conducted by additional ED providers. Chief Complaint: Dizziness Vital signs reviewed by provider: Yes
[2024-10-29 17:19] LABS: Basophils # (Auto) 0.1 Thou/mm3 (0.0-0.2); Basophils % (Auto) 1 % (0-2.5); Eosinophils # (Auto) 0.1 Thou/mm3 (0.0-0.5); Eosinophils % (Auto) 1 % (0-10); Hematocrit 37.2 % (36.0-46.0); Hemoglobin 13.1 g/dL (12.0-16.0); Immature Granulocytes % (Auto) 1 % (0-0); Lymphocytes # (Auto) 5.3 Thou/mm3 (1.0-4.8); Lymphocytes % (Auto) 35 % (10-50); Mean Corpuscular HGB Conc 35.2 g/dl (31.0-37.0); Mean Corpuscular Hemoglobin 35.7 pg (25.0-35.0); Mean Corpuscular Volume 101 fL (80-100); Monocytes # (Auto) 1.2 Thou/mm3 (0.0-0.8); Monocytes % (Auto) 8 % (0-12); Neutrophils # (Auto) 8.5 Thou/mm3 (1.8-7.7); Neutrophils % (Auto) 55 % (37-80); Nucleated Red Blood Cell % 0 /100 WBC (0); Platelet Count 507 Thou/mm3 (140-440); RDW Standard Deviation 52.8 fL (36.4-46.3); Red Blood Count 3.67 Miln/mm3 (4.00-5.20); White Blood Count 15.3 Thou/mm3 (3.6-11.0)
[2024-10-29] MEDS: ALBUTEROL/IPRATROPIUM (Duoneb) RT SOL 3 ML NEBU INH (17:19)
[2024-10-29] MEDS: DEXAMETHASONE SOD PHOS INJ 10 MG/ML VIAL PO (17:20)
[2024-10-29 17:22] VITALS: PULSE 81; RESP 16; O2SAT 98
[2024-10-29 17:39] LABS: B-Type Natriuretic Peptide 49 pg/mL (0-100); Partial Thromboplastin Time 32.2 Seconds (22.0-36.0); Prothrombin Time 10.9 Seconds (9.0-12.2)
[2024-10-29 17:44] LABS: Alanine Aminotransferase 19 U/L (10-49); Albumin, Serum 4.1 gm/dL (3.4-4.8); Albumin/Globulin Ratio 1.6 (1.2-2.2); Alkaline Phosphatase 84 U/L (46-116); Anion Gap 11 (7-16); Aspartate Amino Transferase 66 U/L (0-34); BUN/Creatinine Ratio 11 Ratio (12-20); Bilirubin,Total 0.4 mg/dL (0.3-1.2); Blood Urea Nitrogen 9 mg/dL (9-23); Calcium 9.3 mg/dL (8.3-10.6); Calcium (Corrected) 9.3 mg/dL (8.5-10.1); Carbon Dioxide 28.5 mMol/L (20.0-31.0); Chloride 97 mMol/L (98-107); Creatinine (Component) 0.8 mg/dL (0.6-1.3); Estimated Creatinine Clearance 72.9 mL/min (>60); Globulin 2.6 gm/dL (2.3-3.5); Glucose 72 mg/dL (74-106); Magnesium 1.8 mg/dL (1.6-2.6); Osmolality,Calculated 269 (275-295); Potassium 3.4 mMol/L (3.4-5.1); Sodium 136 mMol/L (136-145); Total Protein 6.7 gm/dL (5.7-8.2); Troponin I < 0.020 ng/mL (0.0-0.045); eGFR > 60 See Note
--- NOTE | 2024-10-29 17:53 | PC.NURSE ---
patient seen by staff exiting emergency department. Patient stated she is leaving. Refused to have a provider come speak to her.
== END 2024-10-29 17:52 | disposition left against medical advice (07) ==
LOC: SERX 17:55
PROVIDERS: Nurse Practitioner Family; Emergency Provider Emergency Medicine; PCP Internal Medicine
DX: R42 Dizziness and giddiness (principal); R07.2 Precordial pain; R06.02 Shortness of breath; R00.2 Palpitations; R94.31 Abnormal electrocardiogram [ECG] [EKG]; Z53.29 Procedure and treatment not carried out because of patient's decision for other reasons
CPT/HCPCS: 36415; 71046; 80053; 83735; 83880; 84484; 85025; 85610; 85730; 93005; 94640; 99283; A9270; J1100

== ENCOUNTER 2024-11-06 05:40 | Day surgery (SDC) | payer MEDICARE, MEDICAID, SELFPAY ==
[2024-11-05 08:42] VITALS: BMI 20.2
[2024-11-05 11:03] LABS: Basophils # (Auto) 0.1 Thou/mm3 (0.0-0.2); Basophils % (Auto) 1 % (0-2.5); Eosinophils # (Auto) 0.1 Thou/mm3 (0.0-0.5); Eosinophils % (Auto) 1 % (0-10); Hematocrit 37.6 % (36.0-46.0); Hemoglobin 13.2 g/dL (12.0-16.0); Immature Granulocytes % (Auto) 1 % (0-0); Immature Granulocytes Auto 0.14 Thou/mm3 (0.00-0.00); Lymphocytes # (Auto) 2.9 Thou/mm3 (1.0-4.8); Lymphocytes % (Auto) 30 % (10-50); Mean Corpuscular HGB Conc 35.1 g/dl (31.0-37.0); Mean Corpuscular Hemoglobin 35.6 pg (25.0-35.0); Mean Corpuscular Volume 101 fL (80-100); Monocytes # (Auto) 0.8 Thou/mm3 (0.0-0.8); Monocytes % (Auto) 8 % (0-12); Neutrophils # (Auto) 5.8 Thou/mm3 (1.8-7.7); Neutrophils % (Auto) 59 % (37-80); Nucleated Red Blood Cell % 0 /100 WBC (0); Platelet Count 572 Thou/mm3 (140-440); Red Blood Count 3.71 Miln/mm3 (4.00-5.20); White Blood Count 9.8 Thou/mm3 (3.6-11.0)
[2024-11-05 11:10] LABS: Partial Thromboplastin Time 30.8 Seconds (22.0-36.0); Prothrombin Time 10.6 Seconds (9.0-12.2)
[2024-11-05 11:23] LABS: Alanine Aminotransferase 47 U/L (10-49); Albumin/Globulin Ratio 1.6 (1.2-2.2); Alkaline Phosphatase 86 U/L (46-116); Anion Gap 8 (7-16); Aspartate Amino Transferase 62 U/L (0-34); BUN/Creatinine Ratio 15 Ratio (12-20); Bilirubin,Total 1.3 mg/dL (0.3-1.2); Blood Urea Nitrogen 12 mg/dL (9-23); Calcium 9.3 mg/dL (8.3-10.6); Calcium (Corrected) 9.3 mg/dL (8.5-10.1); Chloride 93 mMol/L (98-107); Creatinine (Component) 0.8 mg/dL (0.6-1.3); Estimated Creatinine Clearance 66.8 mL/min (>60); Globulin 2.5 gm/dL (2.3-3.5); Glucose 110 mg/dL (74-106); Osmolality,Calculated 263 (275-295); Potassium 3.6 mMol/L (3.4-5.1); Sodium 131 mMol/L (136-145); Total Protein 6.5 gm/dL (5.7-8.2); eGFR > 60 See Note
[2024-11-06] VITALS (18 sets, daily range): BP systolic 103–151; BP diastolic 55–90; PULSE 55–87; RESP 10–18; TEMP 36.2–36.6; O2SAT 95–100; BMI 20.3
[2024-11-06] MEDS: PREGABALIN 75 MG CAPSULE PO (06:55)
[2024-11-06] MEDS: ACETAMINOPHEN 325 MG TABLET 650 MG PO (06:55)
[2024-11-06] MEDS: MELOXICAM 7.5 MG TABLET PO (06:55)
[2024-11-06] MEDS: RINGERS LACTATED 1000 ML 1,000 ML 30 ML IV (06:56)
[2024-11-06] MEDS: ALBUTEROL RT 2.5 MG/3 ML NEBU INH (07:06)
--- NOTE | 2024-11-06 07:20 | CHAP ---
Visited with patient giving encouragement and comfort and prayer.
--- NOTE | 2024-11-06 07:30 | XR_ITS ---
Examination: AP left hip single view Technique one AP portable left hip single view Exam date and time: 2024 08 hrs. Indications: Postop left hip arthroplasty Findings: Total left hip arthroplasty. Satisfactory alignment No fracture Impression: Total left hip arthroplasty with satisfactory alignment
--- NOTE | 2024-11-06 08:50 | SUR.OPER ---
Patient has existing small sore on right medial foot
--- NOTE | 2024-11-06 10:12 | ESOP_ITS ---
Date of Procedure 11/06/24 Pre Op Diagnosis left hip posttraumatic arthritis Post Op Diagnosis left hip posttraumatic arthritis Procedure left total hip replacement lateral robot Findings full thickness cartilage loss and osteophytes. Malunion of greater troch posteriorly and ER Procedure Description Indications: The patient is a 64y.o. year-old with a longstanding history of left hip pain. After considering the patient's condition and the impact of their hip injury on the patient's quality of life and risks of nonoperative treatment, total hip replacement was offered as a reasonable option. We discussed that she has a greater troch malunion which may affect her outcome. Prior to the surgery I discussed the nature of the hip replacement surgery including alternatives to surgery and the purpose of, and indications for proceeding with surgery. I discussed that this surgery is a shared decision between the patient and the surgeon. Risks and benefits and alternatives of the procedure have been explained to the patient and their family. Anesthesia complications and risks include but are not limited to stroke, heart attack, and . The surgical risks include but are not limited to infection, instability/dislocation, bleeding, nerve and blood vessel injury, deep vein thrombosis, pulmonary embolus, stiffness, pain, scar, need for reoperation, leg length discrepancy, thigh numbness, weakness, and mechanical failure of the implant including loosening, metal complications, metal allergy, wear or breakage. I discussed the expected recovery from surgery and the importance of compliance with all our pre and post-operative recommendations in order to maximize the recovery. The patient/family understands the risks of loss of life, loss of limb and, loss of function and wishes to proceed. They understand they are at increased risk for infection given their history of smoking. A signed and witnessed consent was obtained and placed in the chart. Patient Positioning: The patient was placed in the lateral decubitus position on a standard table using a pegboard. An axillary role was placed. All extremities were padded to ensure adequate protection. A jasmine catheter was aseptically inserted. Time Out: A timeout was performed prior to the procedure which verified the correct patient, positioning, operation to be performed, operative site, antibiotics, allergies, imaging, and any other concerns. All parties were in agreement. Procedure in detail: The operative site was cleaned and draped in the usual sterile fashion. A final timeout was performed with all parties in agreement. We first placed three pins above the ASIS and placed the hip array. A modified anterolateral approach to the hip was utilized. A 16cm skin incision was made centered over the greater trochanter in line with the femur. This was taken down through skin and subcutaneous tissue using a 10 blade. Bleeding was controlled using e lectrocautery. The fascia was identified and split in line with the femur. The charnley retractor was then placed. The abductor insertion was identified and a split made in the anterior 1/3 of the tendon proximally. Retractors were placed and the gluteus minimus was visualized. A capsulotomy was made down to the femoral neck anterior to the minimus. A split was then made in the anterior 1/3 of the vastus lateralis. A retractor was then placed anterior to the femoral shaft, the tendon was tagged with #1 ethibond sutures and a U-shaped split was made in the anterior 1/3 of the abductor tendon being careful to leave enough tendon to re-attach. The hip was then gently externally rotated as the anterior tissues were taken down with the tendon and capsule as one sleeve. Once the anterior tissue had been release off of bone a bone hook was placed and the hip was gently dislocated. Retractors were placed around the femoral neck and the femoral neck osteotomy was then made to freshen up the cut. The femoral head removed. The leg was then placed in extension and retractors were placed anterior and posterior to the acetabulum. The inferior capsule was release to improved visualization and the labrum and osteophytes around the acetabulum were removed. The acetabulum was then reamed to bleeding bone with adequate wall coverage and the cup was impacted into place using the robot. Screws were then placed followed by the liner which was impacted and confirmed to be seated. We then turned our attention to the femur. The leg was brought into external rotation and the femur was exposed. A canal finder was used followed by a box osteotomy and the femur was broached sequentially. The trial stem was then left in and the hip was trialed using various neck offsets and head sizes until the appropriate size was found based on leg length, stability. Once we were satisfied with the construct a cross-table AP pelvis radiograph was obtained to confirm appropriate positioning and sizing. The hip was then dislocated and the trials were then removed and the final stem impacted into placed. The hip was then again trialed and the appropriate head size identified. The richards taper was then cleaned and dried and the final head impact into place and tested. The acetabulum was irrigated and confirmed to be free of debris. The hip was then reduced and taken through range of motion. The hip was stable in abduction and external rotation, adduction and external rotation, flexion past 90 degrees and internal rotation past 20 degrees. It did not sublux throughout range of motion and no impingement was detected. Leg lengths were appropriately restored based on preoperative leg lengths and intraoperative testing. We then removed all pins and checked leg length and offset with the robot. The hip was then copiously irrigated with dilute betadine followed by normal saline. The hip was then injected with the cocktail per protocol The hip was the closed in layers. The abductor tendon was closed with #1 ethibond. The fascia was closed with 0 Vicryl followed by an 0 V-lock. . The deep layer was closed with 0-Vicryl and the subcutaneous layer by a 2-0 Vicryl. The subdermal layer was closed with a 3-0 monocryl. The skin was then cleaned and dried and steri- strips placed followed by a sterile dressing. The drapes were then taken down and the patient was placed supine. Leg lengths were confirmed to be appropriate and the patient's lower extremities were warm and well perfused with brisk capillary refill and palpable pulses. The patient was then awoken, transferred to the [facility] and taken to the PACU in stable condition. They tolerated the procedure well. The patient's family/caregiviers were made aware of their condition. Postoperative plan Activity: WBAT, no hip precautions , no active hip abduction DVT Prophylaxis: aspirin 81mg BID Antibiotics: Standard postoperative antibiotics x 24 hours Implants: [place] 54 cup, dual mobility, 2 screws, 28+4 head Anesthesia spinal Drains none Implants natanael Pathology / specimen None Pathology comment: none Estimated Blood Loss 150 Condition Stable Disposition floor Surgeon Sim Hallman MD Surgical Staff Operation Date: 11/06/24 07:30 Case Staff Anesthesiologist: Jesse Cochran RN First Assistant: Maribell Pardo
--- NOTE | 2024-11-06 10:17 | XR_ITS ---
Examination:Left hip AP, lateral, AP pelvis 3 views Technique: Hip AP lateral, AP pelvis, 3 views Exam date and time:November 06, 2024 0944 hrs. Indications: Postop hip replacement Findings: Total left hip arthroplasty. Satisfactory alignment Advanced right hip osteoarthritis Impression: Total left hip arthroplasty with satisfactory alignment.
--- NOTE | 2024-11-06 11:08 | SUR.PHASEII ---
transfer of care report given by MEREDITH Madrid. pt awake, a&ox4, no distress noted. dressing cdi. IV intact, no redness or infiltration noted. pt denies any pain at this time. pt tolerating ice chips, denies any nausea. continuous monitoring
--- NOTE | 2024-11-06 14:35 | SUR.PHASEII ---
physical therapy Simona at bedside with pt
== END 2024-11-06 15:30 | disposition home or self-care (01) ==
PROVIDERS: Anesthesiology; PCP Family Medicine; Referring Provider Orthopaedic Surgery Adult Reconstructive Orthopaedic Surgery; Visit Provider Orthopaedic Surgery Adult Reconstructive Orthopaedic Surgery
PROC: (CPT 27130; principal; 2024-11-06 07:30)
DX: M16.52 Unilateral post-traumatic osteoarthritis, left hip (principal); M25.762 Osteophyte, left knee; J44.9 Chronic obstructive pulmonary disease, unspecified; E03.9 Hypothyroidism, unspecified; D64.9 Anemia, unspecified; S72.142A Displaced intertrochanteric fracture of left femur, initial encounter for closed fracture
CPT/HCPCS: 27130; 36415; 73501; 73502; 80053; 85025; 85610; 85730; 97162; A4217; A4649; C1713; C1776; J0131; J0690; J1100; J1885; J2250; J2371; J2405; J2704; J3010; J3490; J7030; J7120; J7999; A9270

== ENCOUNTER 2024-11-15 13:03 | Outpatient (AMB) | payer MEDICARE, MEDICAID, SELFPAY ==
[2024-11-15 13:11] VITALS: BP 131/84; PULSE 72; RESP 18; TEMP 36.6; O2SAT 94; BMI 22.3
--- NOTE | 2024-11-15 13:11 | ORTHONT_ITS ---
Vital signs 11/15/24 13:11 Height 1.73 m Height Method Stated Weight 66.735 kg Weight Measurement Method Standing Scale BMI 22.3 BP 131/84 H Blood Pressure Source Automatic Cuff Blood Pressure Location Right Upper Arm Position Sitting Respiration 18 Pulse 72 Pulse Source Monitor Temp 97.8 F Temp Source Temporal Artery Scan Pulse Oximetry (%) 94 L Oxygen Delivery Method Room Air Med/Allergies Allergies & Medications Allergies No Known Allergies Allergy (Verified 11/15/24 13:12) Medication Reconciliation clonazepam 0.5 mg tablet 0.5 mg PO TID PRN Anxiety 09/26/23 [History Confirmed 11/15/24] levothyroxine 150 mcg tablet 150 mcg PO ACBR 30 days #30 tabs 02/10/24 [Rx Confirmed 11/15/24] fluoxetine 10 mg capsule 30 mg PO QDAY 03/11/24 [History Confirmed 11/15/24] propranolol 10 mg tablet 10 mg PO Q12H 10/15/24 [History Confirmed 11/15/24] sodium chloride 1,000 mg soluble tablet 2,000 mg PO BID 10/15/24 [History Confirmed 11/15/24] bupropion HCl 300 mg 24 hr tablet, extended release 300 mg PO QDAY 11/05/24 [History Confirmed 11/15/24] docusate sodium 100 mg capsule 100 mg PO DAILY 11/05/24 [History Confirmed 11/15/24] ondansetron HCl 4 mg tablet 4 mg PO TID 11/05/24 [History Confirmed 11/15/24] oxycodone 5 mg tablet 5 mg PO Q6H 11/05/24 [History Confirmed 11/15/24] trazodone 50 mg tablet 50 mg PO QDAY 11/05/24 [History Confirmed 11/15/24] aspirin 81 mg tablet,delayed release 81 mg PO BID #60 tabs 11/06/24 [Rx Confirmed 11/15/24] doxycycline hyclate 100 mg tablet 100 mg PO BID #14 tabs 11/06/24 [Rx Confirmed 11/15/24] sennosides 8.6 mg-docusate sodium 50 mg tablet (Senna-S) 1 tab-cap PO QDAY #30 tabs 11/06/24 [Rx Confirmed 11/15/24] acetaminophen 500 mg tablet (Acetaminophen Extra Strength) 1,000 mg (2 x 500 mg) PO Q6H PRN pain #90 tabs 11/15/24 [Rx] gabapentin 300 mg capsule 300 mg PO .qhs #30 caps 11/15/24 [Rx] oxycodone 5 mg tablet 5 mg PO Q6H PRN pain #28 tabs 11/15/24 [Rx] Exam Exam Patient is in no acute distress and is cooperative with the examination today. Patient has a normal mood and affect. Breathing is nonlabored. In no respiratory distress. Bilateral extremities were evaluated and demonstrates sensation intact to light touch. Palpable pedal pulses are present. No significant edema is present. Right hip is painful with logroll. Leg lengths are equal. She is tender with rotation of internal rotation as well as 20 degrees of external rotation Left hip incision is clean dry intact. Leg lengths are equal. Assessment and Plan Problem List (1) Bilateral primary osteoarthritis of hip: Status: Acute Plan: Patient is a 63-year-old female with bilateral hip osteoarthritis. 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 The patient is doing well status post total hip replacement. We will see her in approximately 4 weeks with new x-rays (2) Intertrochanteric fracture of left hip: Status: Acute (3) Arthritis of knee, left: Status: Acute Advanced Care Planning Discussion Advance care planning discussed with:: patient Office Procedures GNS Level of Care Nursing/Assessment Patient Status: Established Patient Nursing Assessment/Reassesment: Medication Reconciliation, Update PMH in EMR and Vital Signs Coordination of Care: Complex Care and Chronic Disease 1-5, Education Complex Pt/Fam, Consent,records obtained, informed consent, Results/Orders obtained and Staff clarify orders Established Patient Charge Established Patient Point Assignment: 95 Established Patient Point Charge: EP Level 3 (80-115) MA Intake Visit Data Collection New Patient or Established: Established Patient (seen at [facility] within 3 years) Reason for Visit:: 2 WK POST OP Seen by Clinical Staff ONLY (RN/MA): No Verbal consent obtained for Telemed visit?: No [employer] Required: No PCP or OBGYN visit in last 3 months: Yes Hx Now: No Do You Feel Safe at Home: Yes Authorities Contacted: N/A Questionairres Past Medical History Past Medical History Have you ever been diagnosed with any of the following: Neurological Problems Seizures: No Head Trauma: Yes Cardiology Problems Congestive Heart Failure: No Respiratory Problems Chronic Obstructive Pulmonary Disease (COPD): Yes Asthma: Yes Pneumonia: Yes Smoking: Yes Smoking Cessation Counseling: Yes Smoking Exposure: Yes Genital/Urinary Problems Renal Disease: No Reproductive Problems Previous Pregnancies: Yes Musculoskeletal Problems Fractures: Yes (hip and ribs) Endocrine Problems Diabetes Mellitus Type 1: No Diabetes Mellitus Type 2: No Hypoglycemia: No Hyperthyroidism: Yes Hypothyroidism: Yes Blood Problems Anemia: Yes Sickle Cell Disease: No Psychologic Problems Recreational Drug Use: Yes Depression: Yes Anxiety: Yes Other Problems Hospitalization: Yes (Electrolytes, sodium and potassium low) Shingles: No Falls: Yes Blood Transfusions: No Blood Transfusion Reaction: No Anesthesia Reactions: No Chicken Pox: Yes Measles: Yes Clostridium Difficile: No Cancer: No Subjective Visit Visit for: follow up visit, post op #1 and hip Immunization / Flu Flu Vaccine in the Last 12 Months: No Flu Vaccine Exclusion Criteria: No Exclusion Criteria History of Present Illness Chief complaint: 2 WK POST OP Patient is a 63-year-old female with Left hip osteoarthritis. She underwent a left total hip replacement 2 weeks ago. She reports that she is doing well. Personal History Red flag PMH: smoker BMI Counceling provided: Yes Pain Pain level (0-10): 10 Pain duration: ALL DAY Pain location: groin Pain quality: sharp, dull and aching Pain timing: night, increases with activity and stairs Associated signs & symptoms: none Ambulatory data Ambulatory device: walker Treatments Improvement with previous injections: No Improvement with PT: No Improvement with NSAIDS: no Review of Systems Review of Systems: All systems negative unless otherwise noted in HPI.
== END 2024-11-15 13:29 | disposition home or self-care (01) ==
PROVIDERS: PCP Family Medicine; Referring Provider Family Medicine; Supervising Provider Orthopaedic Surgery Adult Reconstructive Orthopaedic Surgery; Visit Provider Orthopaedic Surgery Adult Reconstructive Orthopaedic Surgery
DX: M16.0 Bilateral primary osteoarthritis of hip (principal); M17.12 Unilateral primary osteoarthritis, left knee; S72.142A Displaced intertrochanteric fracture of left femur, initial encounter for closed fracture; X58.XXXA Exposure to other specified factors, initial encounter
CPT/HCPCS: 99213; G0463

== ENCOUNTER 2024-12-12 10:49 | Outpatient (AMB) | payer MEDICARE, MEDICAID, SELFPAY ==
--- NOTE | 2024-12-12 11:34 | XR_ITS ---
Examination:Left hip AP, lateral, AP pelvis 3 views Technique: Hip AP lateral, AP pelvis, 3 views Exam date and time:December 12, 2024 1158 hours INDICATIONS: Left hip pain beginning 3 months ago. FINDINGS: Total left hip arthroplasty. Satisfactory alignment. No loosening of the prosthetic components. Severe right hip osteoarthritis IMPRESSION: Total left hip arthroplasty with satisfactory alignment Advanced right hip osteoarthritis.
--- NOTE | 2024-12-12 11:35 | ORTHONT_ITS ---
Vital signs 12/12/24 11:36 Height 1.73 m Height Method Stated Weight 60.951 kg Weight Measurement Method Standing Scale BMI 20.3 BP 144/91 H Blood Pressure Source Automatic Cuff Blood Pressure Location Left Upper Arm Position Sitting Respiration 19 Pulse 95 Pulse Source Monitor Temp 97.7 F Temp Source Temporal Artery Scan Pulse Oximetry (%) 98 Oxygen Delivery Method Room Air Med/Allergies Allergies & Medications Allergies No Known Allergies Allergy (Verified 12/12/24 11:37) Medication Reconciliation clonazepam 0.5 mg tablet 0.5 mg PO TID PRN Anxiety 09/26/23 [History Confirmed 12/12/24] levothyroxine 150 mcg tablet 150 mcg PO ACBR 30 days #30 tabs 02/10/24 [Rx Confirmed 12/12/24] fluoxetine 10 mg capsule 30 mg PO QDAY 03/11/24 [History Confirmed 12/12/24] propranolol 10 mg tablet 10 mg PO Q12H 10/15/24 [History Confirmed 12/12/24] sodium chloride 1,000 mg soluble tablet 2,000 mg PO BID 10/15/24 [History Confirmed 12/12/24] bupropion HCl 300 mg 24 hr tablet, extended release 300 mg PO QDAY 11/05/24 [History Confirmed 12/12/24] docusate sodium 100 mg capsule 100 mg PO DAILY 11/05/24 [History Confirmed 12/12/24] ondansetron HCl 4 mg tablet 4 mg PO TID 11/05/24 [History Confirmed 12/12/24] oxycodone 5 mg tablet 5 mg PO Q6H 11/05/24 [History Confirmed 12/12/24] trazodone 50 mg tablet 50 mg PO QDAY 11/05/24 [History Confirmed 12/12/24] aspirin 81 mg tablet,delayed release 81 mg PO BID #60 tabs 11/06/24 [Rx Confirmed 12/12/24] doxycycline hyclate 100 mg tablet 100 mg PO BID #14 tabs 11/06/24 [Rx Confirmed 12/12/24] sennosides 8.6 mg-docusate sodium 50 mg tablet (Senna-S) 1 tab-cap PO QDAY #30 tabs 11/06/24 [Rx Confirmed 12/12/24] acetaminophen 500 mg tablet (Acetaminophen Extra Strength) 1,000 mg (2 x 500 mg) PO Q6H PRN pain #90 tabs 11/15/24 [Rx Confirmed 12/12/24] gabapentin 300 mg capsule 300 mg PO .qhs #30 caps 11/15/24 [Rx Confirmed 12/12/24] oxycodone 5 mg tablet 5 mg PO Q6H PRN pain #28 tabs 11/15/24 [Rx Confirmed 12/12/24] Exam Exam Patient is in no acute distress and is cooperative with the examination today. Patient has a normal mood and affect. Breathing is nonlabored. In no respiratory distress. Bilateral extremities were evaluated and demonstrates sensation intact to light touch. Palpable pedal pulses are present. No significant edema is present. Right hip is painful with logroll. Leg lengths are equal. She is tender with rotation of internal rotation as well as 20 degrees of external rotation Left hip incision is clean dry intact. Leg lengths are equal. Assessment and Plan Problem List (1) Bilateral primary osteoarthritis of hip: Status: Acute Plan: Patient is a 63-year-old female with bilateral hip osteoarthritis. 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 The patient is doing well status post total hip replacement. She is doing well but did not bring x-rays with her today. We will see her in approximately 6 weeks (2) Intertrochanteric fracture of left hip: Status: Acute (3) Arthritis of knee, left: Status: Acute Advanced Care Planning Discussion Advance care planning discussed with:: patient Office Procedures GNS Level of Care Nursing/Assessment Patient Status: Established Patient Nursing Assessment/Reassesment: Medication Reconciliation, Update PMH in EMR and Vital Signs Coordination of Care: Complex Care and Chronic Disease 1-5, Education Complex Pt/Fam, Consent,records obtained, informed consent, Results/Orders obtained and Staff clarify orders Established Patient Charge Established Patient Point Assignment: 95 Established Patient Point Charge: EP Level 3 (80-115) Questionairres Past Medical History Past Medical History Have you ever been diagnosed with any of the following: Neurological Problems Seizures: No Head Trauma: Yes Cardiology Problems Congestive Heart Failure: No Respiratory Problems Chronic Obstructive Pulmonary Disease (COPD): Yes Asthma: Yes Pneumonia: Yes Smoking: Yes Smoking Cessation Counseling: Yes Smoking Exposure: Yes Genital/Urinary Problems Renal Disease: No Reproductive Problems Previous Pregnancies: Yes Musculoskeletal Problems Fractures: Yes (hip and ribs) Endocrine Problems Diabetes Mellitus Type 1: No Diabetes Mellitus Type 2: No Hypoglycemia: No Hyperthyroidism: No Hypothyroidism: Yes Blood Problems Anemia: Yes Sickle Cell Disease: No Psychologic Problems Recreational Drug Use: Yes Depression: Yes Anxiety: Yes Other Problems Hospitalization: Yes (Electrolytes, sodium and potassium low) Shingles: No Falls: Yes Blood Transfusions: No Blood Transfusion Reaction: No Anesthesia Reactions: No Chicken Pox: Yes Measles: Yes Clostridium Difficile: No Cancer: No Subjective Immunization / Flu Flu Vaccine in the Last 12 Months: Yes Flu Vaccine Exclusion Criteria: Already Received History of Present Illness Chief complaint: Left hip replacement Alona is 5 weeks out from a left total hip replacement for posttraumatic arthrit is. She is doing well. She is using no assistive device at this time Review of Systems Review of Systems: All systems negative unless otherwise noted in HPI.
--- NOTE | 2024-12-12 11:35 | ORTHONT_ITS ---
Vital signs 12/12/24 11:36 Height 1.73 m Height Method Stated Weight 60.951 kg Weight Measurement Method Standing Scale BMI 20.3 BP 144/91 H Blood Pressure Source Automatic Cuff Blood Pressure Location Left Upper Arm Position Sitting Respiration 19 Pulse 95 Pulse Source Monitor Temp 97.7 F Temp Source Temporal Artery Scan Pulse Oximetry (%) 98 Oxygen Delivery Method Room Air Med/Allergies Allergies & Medications Allergies No Known Allergies Allergy (Verified 12/12/24 11:37) Medication Reconciliation clonazepam 0.5 mg tablet 0.5 mg PO TID PRN Anxiety 09/26/23 [History Confirmed 12/12/24] levothyroxine 150 mcg tablet 150 mcg PO ACBR 30 days #30 tabs 02/10/24 [Rx Confirmed 12/12/24] fluoxetine 10 mg capsule 30 mg PO QDAY 03/11/24 [History Confirmed 12/12/24] propranolol 10 mg tablet 10 mg PO Q12H 10/15/24 [History Confirmed 12/12/24] sodium chloride 1,000 mg soluble tablet 2,000 mg PO BID 10/15/24 [History Confirmed 12/12/24] bupropion HCl 300 mg 24 hr tablet, extended release 300 mg PO QDAY 11/05/24 [History Confirmed 12/12/24] docusate sodium 100 mg capsule 100 mg PO DAILY 11/05/24 [History Confirmed 12/12/24] ondansetron HCl 4 mg tablet 4 mg PO TID 11/05/24 [History Confirmed 12/12/24] oxycodone 5 mg tablet 5 mg PO Q6H 11/05/24 [History Confirmed 12/12/24] trazodone 50 mg tablet 50 mg PO QDAY 11/05/24 [History Confirmed 12/12/24] aspirin 81 mg tablet,delayed release 81 mg PO BID #60 tabs 11/06/24 [Rx Confirmed 12/12/24] doxycycline hyclate 100 mg tablet 100 mg PO BID #14 tabs 11/06/24 [Rx Confirmed 12/12/24] sennosides 8.6 mg-docusate sodium 50 mg tablet (Senna-S) 1 tab-cap PO QDAY #30 tabs 11/06/24 [Rx Confirmed 12/12/24] acetaminophen 500 mg tablet (Acetaminophen Extra Strength) 1,000 mg (2 x 500 mg) PO Q6H PRN pain #90 tabs 11/15/24 [Rx Confirmed 12/12/24] gabapentin 300 mg capsule 300 mg PO .qhs #30 caps 11/15/24 [Rx Confirmed 12/12/24] oxycodone 5 mg tablet 5 mg PO Q6H PRN pain #28 tabs 11/15/24 [Rx Confirmed 12/12/24] Assessment and Plan Advanced Care Planning Discussion Advance care planning discussed with:: patient Office Procedures GNS Level of Care Nursing/Assessment Patient Status: Established Patient Nursing Assessment/Reassesment: Medication Reconciliation, Update PMH in EMR and Vital Signs Coordination of Care: Complex Care and Chronic Disease 1-5, Education Complex Pt/Fam, Consent,records obtained, informed consent, Results/Orders obtained and Staff clarify orders Established Patient Charge Established Patient Point Assignment: 95 Established Patient Point Charge: EP Level 3 (80-115) MA Intake Visit Data Collection New Patient or Established: Established Patient (seen at [facility] within 3 years) Reason for Visit:: 6 WEEK POST OP HIP Seen by Clinical Staff ONLY (RN/MA): No PCP or OBGYN visit in last 3 months: Yes Hx Now: No Do You Feel Safe at Home: Yes Authorities Contacted: N/A Questionairres Past Medical History Past Medical History Have you ever been diagnosed with any of the following: Neurological Problems Seizures: No Head Trauma: Yes Cardiology Problems Congestive Heart Failure: No Respiratory Problems Chronic Obstructive Pulmonary Disease (COPD): Yes Asthma: Yes Pneumonia: Yes Smoking: Yes Smoking Cessation Counseling: Yes Smoking Exposure: Yes Genital/Urinary Problems Renal Disease: No Reproductive Problems Previous Pregnancies: Yes Musculoskeletal Problems Fractures: Yes (hip and ribs) Endocrine Problems Diabetes Mellitus Type 1: No Diabetes Mellitus Type 2: No Hypoglycemia: No Hyperthyroidism: No Hypothyroidism: Yes Blood Problems Anemia: Yes Sickle Cell Disease: No Psychologic Problems Recreational Drug Use: Yes Depression: Yes Anxiety: Yes Other Problems Hospitalization: Yes (Electrolytes, sodium and potassium low) Shingles: No Falls: Yes Blood Transfusions: No Blood Transfusion Reaction: No Anesthesia Reactions: No Chicken Pox: Yes Measles: Yes Clostridium Difficile: No Cancer: No Subjective Visit Visit for: follow up visit, post op #2 and hip Immunization / Flu Flu Vaccine in the Last 12 Months: No Flu Vaccine Exclusion Criteria: No Exclusion Criteria Pain Pain level (0-10): 7 Pain duration: ALL DAY Pain location: outside (lateral) Pain quality: dull and aching Pain timing: night Associated signs & symptoms: numbness Ambulatory data Ambulatory device: none Treatments Improvement with previous injections: No Improvement with PT: No Improvement with NSAIDS: no Review of Systems Review of Systems: All systems negative unless otherwise noted in HPI.
[2024-12-12 11:36] VITALS: BP 144/91; PULSE 95; RESP 19; TEMP 36.5; O2SAT 98; BMI 20.3
== END 2024-12-12 11:39 | disposition home or self-care (01) ==
LOC: HODSRG 10:49
PROVIDERS: PCP Family Medicine; Referring Provider Family Medicine; Supervising Provider Orthopaedic Surgery Adult Reconstructive Orthopaedic Surgery; Visit Provider Orthopaedic Surgery Adult Reconstructive Orthopaedic Surgery
DX: M16.0 Bilateral primary osteoarthritis of hip (principal); S72.142D Displaced intertrochanteric fracture of left femur, subsequent encounter for closed fracture with routine healing; X58.XXXD Exposure to other specified factors, subsequent encounter; M17.12 Unilateral primary osteoarthritis, left knee; Z96.642 Presence of left artificial hip joint; J44.9 Chronic obstructive pulmonary disease, unspecified; E03.9 Hypothyroidism, unspecified
CPT/HCPCS: 73502; 99213; G0463

== ENCOUNTER 2024-12-15 13:11 | Emergency (ER) | payer MEDICARE, MEDICAID, SELFPAY ==
[2024-12-15 13:25] VITALS: BP 132/76; PULSE 78; RESP 20; TEMP 37.4; O2SAT 97
--- NOTE | 2024-12-15 13:28 | XR_ITS ---
Examination: CT abdomen and pelvis without contrast. Coronal 3-D reconstructions. Sagittal 2-D reconstructions. Date and time of exam:December 15, 2024 1345 hrs. Indications: Generalized abdominal pain today CTDI: vol (mGy): 6.83 DLP: (mGycm): 363 Technique: Axial images of the abdomen have been obtained, 3 mm slice thickness Intravenous contrast material has not been administered. Low dose protocols were performed. One or more of the following dose reduction techniques were used; automated exposure control, adjustment of the mA and/or KV according to patient size, use of iterative reconstruction technique. Findings: Diffuse fatty infiltration throughout the liver No gallstones No pancreatic mass or peripancreatic edema Normal adrenal glands. No renal or ureteral calculi, no hydronephrosis Heavy abdominal aortic calcification no aneurysmal dilatation No pericecal inflammatory change No nonspecific colitis or diverticulitis pattern No free fluid in the abdomen Left hip arthroplasty generates artifacts in the pelvis Bladder intact Impression: Diffuse fatty infiltration throughout the liver. Negative for cholelithiasis Negative for pancreatitis. No renal or ureteral calculi, no hydronephrosis No CT findings of bowel obstruction or diverticulitis
--- NOTE | 2024-12-15 13:28 | XR_ITS ---
Examination: PA lateral chest 2 views Technique: Upright PA lateral chest 2 views Exam date and time: December 15, 2024 1400 hrs. Comparison October 29, 2024 Indications: Nausea vomiting bodyaches today Findings: Mild parenchymal disease left upper lobe Mild prominence left ventricle No pulmonary edema Moderate osteopenia Impression: Mild pneumonia left upper lobe, follow-up is needed to document clearing
--- NOTE | 2024-12-15 13:29 | XR_ITS ---
Examination: CT brain head without contrast. 2-D sagittal coronal reconstructions Date and time of exam:December 15, 2024 at 1342 hrs. Indications: Headache nausea today CTDI: vol (mGy):46.4 DLP: (mGycm):914 Technique: Multiple CT axial sections of the brain have been obtained, 5 mm slice thickness. Contrast has not been administered. 2-D sagittal, coronal reconstructions have been obtained Low dose protocols were performed. One or more of the following dose reduction techniques were used; automated exposure control, adjustment of the mA and/or KV according to patient size, use of iterative reconstruction technique. Findings: No significant ventricular enlargement. Intra-axial or extra-axial hemorrhage density is not seen. No mass effect or midline shift Basal cisterns are not remarkable. Fourth ventricle is midline. Cranial vault intact. Impression: Negative for acute hemorrhage, mass effect or midline shift
--- NOTE | 2024-12-15 13:29 | EDRME_ITS ---
Rapid Medical Screening Exam [facility] Arrival date/time: 12/15/24 13:11 64-year-old female presents to the emergency department reports of nausea vomiting abdominal pain as well as generalized bodyaches and headache Chief Complaint: Nausea/Vomiting/Diarrhea Vital signs: Vital Signs Temperature 99.3 F 12/15/24 13:25 Pulse Rate 78 12/15/24 13:25 Respiratory Rate 20 12/15/24 13:25 Blood Pressure 132/76 H 12/15/24 13:25 Pulse Oximetry (%) 97 12/15/24 13:25 Oxygen Delivery Method Room Air 12/15/24 13:25
[2024-12-15] MEDS: METOCLOPRAMIDE INJ 5 MG/ML VIAL 2 ML 10 MG IM (14:04)
[2024-12-15 14:09] LABS: Lactate (Lactic Acid) 2.8 mMol/L (0.4-2.0)
[2024-12-15 14:13] LABS: Basophils # (Auto) 0.1 Thou/mm3 (0.0-0.2); Basophils % (Auto) 0 % (0-2.5); Eosinophils # (Auto) 0.2 Thou/mm3 (0.0-0.5); Eosinophils % (Auto) 1 % (0-10); Hematocrit 38.9 % (36.0-46.0); Hemoglobin 13.7 g/dL (12.0-16.0); Immature Granulocytes % (Auto) 1 % (0-0); Immature Granulocytes Auto 0.13 Thou/mm3 (0.00-0.00); Lymphocytes # (Auto) 2.3 Thou/mm3 (1.0-4.8); Lymphocytes % (Auto) 13 % (10-50); Mean Corpuscular HGB Conc 35.2 g/dl (31.0-37.0); Mean Corpuscular Volume 102 fL (80-100); Monocytes # (Auto) 1.9 Thou/mm3 (0.0-0.8); Monocytes % (Auto) 10 % (0-12); Neutrophils % (Auto) 75 % (37-80); Nucleated Red Blood Cell % 0 /100 WBC (0); Platelet Count 687 Thou/mm3 (140-440); RDW Standard Deviation 53.5 fL (36.4-46.3); Red Blood Count 3.81 Miln/mm3 (4.00-5.20); White Blood Count 18.5 Thou/mm3 (3.6-11.0)
[2024-12-15 14:42] LABS: Alanine Aminotransferase 11 U/L (10-49); Albumin, Serum 5.2 gm/dL (3.4-4.8); Albumin/Globulin Ratio 1.6 (1.2-2.2); Alkaline Phosphatase 135 U/L (46-116); Anion Gap 13 (7-16); Aspartate Amino Transferase 23 U/L (0-34); BUN/Creatinine Ratio 8 Ratio (12-20); Blood Urea Nitrogen 7 mg/dL (9-23); Calcium 10.5 mg/dL (8.3-10.6); Calcium (Corrected) 10.5 mg/dL (8.5-10.1); Carbon Dioxide 24.8 mMol/L (20.0-31.0); Chloride 93 mMol/L (98-107); Creatinine (Component) 0.9 mg/dL (0.6-1.3); Globulin 3.2 gm/dL (2.3-3.5); Glucose 116 mg/dL (74-106); Osmolality,Calculated 261 (275-295); Potassium 3.6 mMol/L (3.4-5.1); Sodium 131 mMol/L (136-145); Total Protein 8.4 gm/dL (5.7-8.2); eGFR > 60 See Note
[2024-12-15 17:04] LABS: Reflex Lactate? Y
== END 2024-12-15 14:24 | disposition left against medical advice (07) ==
LOC: SERX 13:59
PROVIDERS: Nurse Practitioner Primary Care; Emergency Provider Family Medicine; PCP Family Medicine
DX: R11.2 Nausea with vomiting, unspecified (principal); R10.9 Unspecified abdominal pain; R51.9 Headache, unspecified; Z53.29 Procedure and treatment not carried out because of patient's decision for other reasons
CPT/HCPCS: 36415; 70450; 71046; 74176; 80053; 81001; 83605; 84145; 85025; 87040; 87086; 96372; 99281; J2765

== ENCOUNTER → 2025-06-25 | Outpatient (CLI) | payer MEDICARE, SELFPAY ==
--- NOTE | 2025-06-25 09:02 | XR_ITS ---
Examination: Right hip AP, lateral, AP pelvis 3 views Technique: Hip AP lateral, AP pelvis, 3 views Exam date and time: June 25, 2025, 0907 hours INDICATIONS: Right hip pain several years FINDINGS: Advanced right hip osteoarthritis, severe Joint space Extensive fragmentation and radiolucencies femoral head No hip dislocation Total left hip arthroplasty with satisfactory alignment IMPRESSION: Severe right hip osteoarthritis Extensive avascular necrosis right femoral head.
== END | disposition home or self-care (01) ==
PROVIDERS: Referring Provider Orthopaedic Surgery Adult Reconstructive Orthopaedic Surgery; Visit Provider Orthopaedic Surgery Adult Reconstructive Orthopaedic Surgery
DX: M16.11 Unilateral primary osteoarthritis, right hip (principal); M87.851 Other osteonecrosis, right femur
CPT/HCPCS: 73502

== ENCOUNTER 2025-07-01 13:50 | Outpatient (AMB) | payer MEDICARE, MEDICAID, SELFPAY ==
--- NOTE | 2025-07-01 14:17 | PD.ORTHCLVIS ---
Vital signs 07/01/25 14:20 Height 1.73 m Height Method Stated Weight 73.227 kg Weight Measurement Method Standing Scale BMI 24.5 BP 144/81 H Blood Pressure Source Automatic Cuff Blood Pressure Location Left Upper Arm Position Sitting Respiration 18 Pulse 99 Pulse Source Monitor Temp 98.6 F Temp Source Temporal Artery Scan Pulse Oximetry (%) 97 Oxygen Delivery Method Room Air Med/Allergies Allergies & Medications Allergies No Known Allergies Allergy (Verified 07/01/25 14:20) Medication Reconciliation clonazepam 0.5 mg tablet 0.5 mg PO TID PRN Anxiety 09/26/23 [History Confirmed 07/01/25] levothyroxine 150 mcg tablet 150 mcg PO ACBR 30 days #30 tabs 02/10/24 [Rx Confirmed 07/01/25] fluoxetine 10 mg capsule 30 mg PO QDAY 03/11/24 [History Confirmed 07/01/25] propranolol 10 mg tablet 10 mg PO Q12H 10/15/24 [History Confirmed 07/01/25] sodium chloride 1,000 mg soluble tablet 2,000 mg PO BID 10/15/24 [History Confirmed 07/01/25] bupropion HCl 300 mg 24 hr tablet, extended release 300 mg PO QDAY 11/05/24 [History Confirmed 07/01/25] docusate sodium 100 mg capsule 100 mg PO DAILY 11/05/24 [History Confirmed 07/01/25] ondansetron HCl 4 mg tablet 4 mg PO TID 11/05/24 [History Confirmed 07/01/25] oxycodone 5 mg tablet 5 mg PO Q6H 11/05/24 [History Confirmed 07/01/25] trazodone 50 mg tablet 50 mg PO QDAY 11/05/24 [History Confirmed 07/01/25] aspirin 81 mg tablet,delayed release 81 mg PO BID #60 tabs 11/06/24 [Rx Confirmed 07/01/25] doxycycline hyclate 100 mg tablet 100 mg PO BID #14 tabs 11/06/24 [Rx Confirmed 07/01/25] sennosides 8.6 mg-docusate sodium 50 mg tablet (Senna-S) 1 tab-cap PO QDAY #30 tabs 11/06/24 [Rx Confirmed 07/01/25] acetaminophen 500 mg tablet (Acetaminophen Extra Strength) 1,000 mg (2 x 500 mg) PO Q6H PRN pain #90 tabs 11/15/24 [Rx Confirmed 07/01/25] gabapentin 300 mg capsule 300 mg PO .qhs #30 caps 11/15/24 [Rx Confirmed 07/01/25] oxycodone 5 mg tablet 5 mg PO Q6H PRN pain #28 tabs 11/15/24 [Rx Confirmed 07/01/25] meloxicam 7.5 mg tablet 7.5 mg PO QDAY #45 tabs 07/01/25 [Rx] Exam Exam Patient is in no acute distress and is cooperative with the examination today. Patient has a normal mood and affect. Breathing is nonlabored. In no respiratory distress. Bilateral extremities were evaluated and demonstrates sensation intact to light touch. Palpable pedal pulses are present. No significant edema is present. Right hip is painful with logroll. Leg lengths are equal. She is tender with rotation of internal rotation as well as 20 degrees of external rotation Left hip incision is clean dry intact. Leg lengths are equal. x-rays demonstrate severe arthritis of the right hip. There is a left cementless total hip replacement in alignment position. Significant osteophytes are present on the right hip Assessment and Plan Problem List (1) Bilateral primary osteoarthritis of hip: Status: Acute Plan: ASSESSMENT AND PLAN 1. Right hip arthritis: Severe pain in the right hip is reported, significantly impacting daily activities. Anti-inflammatories have been tried without substantial relief. A right hip replacement is recommended and can be scheduled as soon as possible. It is crucial to arrange for home support post-surgery due to living alone and experiencing memory issues. Discussed the importance of having adequate support at home to ensure a smooth recovery. Potential options for home healthcare were reviewed, including the possibility of a part-time caregiver or exploring other support systems. the nature and purpose of the total hip replacement, alternative method(s) of treatment, the material risks involved, and the possibility of complications were fully explained to the patient. The patient does NOT have any of the following contraindications to [facility]: - Active infection of the hip joint, OR - Active systemic bacteremia, OR - Active skin infection or open wound at surgical site, OR - Neuropathic arthritis, OR - Severe, rapidly progressive neurological disease, OR - Severe medical condition that makes risks of the surgery outweigh the potential benefit The patient was told the most common risks and complications associated with a total hip replacement include, but are not limited to: blood clots in the leg, fatal pulmonary embolism, dislocation of the prosthesis, intraoperative and postoperative fractures of the femur or acetabulum, infection, failure of the prosthesis or grafting materials, complications from anesthesia, reactions to blood transfusions, postoperative leg length inequality, instability of the hip replacement, nerve damage or injury, vascular injury, delayed wound healing, infection, other injury or even . In addition, there are risks associated with anesthesia given during this operation. Also, the patient was told that after undergoing a total hip replacement there may still be persistent pain or disability. The patient was informed that the success of this operation in part depends upon the mechanical devices which are going to be implanted and that these devices can fail or malfunction, and may need to be repaired or replaced and there are no guarantees as to the longevity of this device or its parts and that it or its parts could fail prematurely. The patient was also notified that during the course of surgery, there may be a need to use bone graft from donors, and that any bone graft used will be carefully screened for communicable diseases, including AIDS, hepatitis, Meño-Creutzfeldt, or other diseases, but despite the screening procedures, there is a small chance that they could contract one of these diseases. Finally, the patient was asked to follow completely and fully with all advice and recommended treatments, and that recovery and ultimate outcome are affected by their compliance with recommended treatment. We discussed the risks, benefits and treatment alternatives, and the patient is interested in proceeding with surgery. We will try to set this up as expeditiously as possible. 2. Memory issues: Significant memory deterioration is reported, including difficulty remembering recent events and tasks. An MRI is scheduled for 07/22/2025 to investigate the cause further. Emphasized the importance of seeking help at home due to memory issues. Discussed the potential need for a caregiver to assist with daily activities and ensure safety. Encouraged to follow up with the primary care provider to address these concerns and explore further diagnostic and therapeutic options. (2) Intertrochanteric fracture of left hip: Status: Acute (3) Arthritis of knee, left: Status: Acute Advanced Care Planning Discussion Advance care planning discussed with:: patient Office Procedures GNS Level of Care Nursing/Assessment Patient Status: Established Patient Nursing Assessment/Reassesment: Medication Reconciliation, Update PMH in EMR and Vital Signs Coordination of Care: Complex Care and Chronic Disease 1-5, Education Complex Pt/Fam, Consent,records obtained, informed consent, Results/Orders obtained and Staff clarify orders Established Patient Charge Established Patient Point Assignment: 95 Established Patient Point Charge: EP Level 3 (80-115) MA Intake Visit Data Collection New Patient or Established: Established Patient (seen at [facility] within 3 years) Reason for Visit:: R HIP PAIN FOLLOW UP Seen by Clinical Staff ONLY (RN/MA): No PCP or OBGYN visit in last 3 months: Yes Hx Now: No Do You Feel Safe at Home: Yes Authorities Contacted: N/A Questionairres Past Medical History Past Medical History Have you ever been diagnosed with any of the following: Neurological Problems Seizures: No Head Trauma: Yes Cardiology Problems Congestive Heart Failure: No Respiratory Problems Chronic Obstructive Pulmonary Disease (COPD): Yes Asthma: Yes Pneumonia: Yes Smoking: Yes Smoking Cessation Counseling: Yes Smoking Exposure: Yes Genital/Urinary Problems Renal Disease: No Reproductive Problems Previous Pregnancies: Yes Musculoskeletal Problems Fractures: Yes (hip and ribs) Endocrine Problems Diabetes Mellitus Type 1: No Diabetes Mellitus Type 2: No Hypoglycemia: No Hyperthyroidism: No Hypothyroidism: Yes Blood Problems Anemia: Yes Sickle Cell Disease: No Psychologic Problems Recreational Drug Use: Yes Depression: Yes Anxiety: Yes Other Problems Hospitalization: Yes (Electrolytes, sodium and potassium low) Shingles: No Falls: Yes Blood Transfusions: No Blood Transfusion Reaction: No Anesthesia Reactions: No Chicken Pox: Yes Measles: Yes Clostridium Difficile: No Cancer: No Subjective Visit Visit for: follow up visit and hip Immunization / Flu Flu Vaccine in the Last 12 Months: Yes Flu Vaccine Exclusion Criteria: Already Received History of Present Illness Chief complaint: Left hip replacement HISTORY OF PRESENT ILLNESS ISim, have obtained verbal consent from the patient, to be recorded during this encounter which may include, but not limited to, medical history, examination, treatment plans, and relevant health information.? Patient was informed that recording will be read and reviewed by myself before inclusion in the medical chart. The patient presents for evaluation of right hip arthritis and memory issues. She reports severe pain in her right hip, which has been diagnosed as arthritis. The pain is so intense that it significantly impairs her mobility within her home. She expresses a desire to undergo a hip replacement procedure at the earliest possible convenience. She has previously attempted to manage the condition with anti-inflammatory medications but has not engaged in physical therapy. She is currently exploring options for home healthcare support. She has a history of a left hip fracture, which occurred due to a fall and resulted in a three-part break. Despite extensive radiographic examinations over a year, there was no improvement in her condition. Additionally, she reports a decline in her memory function, to the extent that she requires assistance from her son to maintain a list of tasks. She has an upcoming appointment for an MRI on 07/22/2025. Review of Systems Review of Systems: All systems negative unless otherwise noted in HPI.
[2025-07-01 14:20] VITALS: BP 144/81; PULSE 99; RESP 18; TEMP 37; O2SAT 97; BMI 24.5
== END 2025-07-01 14:26 | disposition home or self-care (01) ==
PROVIDERS: PCP Family Medicine; Referring Provider Family Medicine; Supervising Provider Orthopaedic Surgery Adult Reconstructive Orthopaedic Surgery; Visit Provider Orthopaedic Surgery Adult Reconstructive Orthopaedic Surgery
DX: M16.0 Bilateral primary osteoarthritis of hip (principal); M17.12 Unilateral primary osteoarthritis, left knee; S72.092A Other fracture of head and neck of left femur, initial encounter for closed fracture
CPT/HCPCS: 99213; G0463

== ENCOUNTER → 2025-07-21 | Outpatient (CLI) | payer MEDICARE, MEDICAID, SELFPAY ==
--- NOTE | 2025-07-21 15:00 | XR_ITS ---
Examination: MRI brain without intravenous contrast. Date and time of exam: July 21, 2025, 1555 hours INDICATIONS: Increasing Diamond several months Technique: Multiple axial and sagittal images of the brain obtained. Siemens high-resolution 1.5 Brenda short bore scanners utilized. Sagittal sections, T1-weighted, TR 500, TE 14, are performed. Axial sections proton-density and T2-weighted have been obtained. Inversion recovery axial images, TR 9, 260, TE 111, TI 2500. Diffusion weighted images, axial sections, TR 4800, TE 128, B value 1000 Axial sections, ADC map, TR 4800, TE 128 Findings: Enlargement of the sella turcica is not present. The optic chiasm and infundibular are not remarkable. Prepontine and interpeduncular cisterns are not enlarged. There is no localized enlargement of the medulla or melissa. Fourth ventricle and cerebellar tonsils appear normal in position. No subacute area of hemorrhage density is seen. Mass in the cerebellopontine angle region is not evident. Globes symmetrical. Orbital musculature including medial lateral rectus muscles do not exhibit abnormality. Diffusion-weighted images demonstrate no focus of restricted diffusion. Increased white matter signal prominent Mass effect upon the ventricular system is not identified. Impression: Negative for acute hemorrhage mass effect or midline shift No acute infarct Prominent chronic microvascular white matter change
== END | disposition home or self-care (01) ==
PROVIDERS: PCP Internal Medicine; Referring Provider Internal Medicine; Visit Provider Internal Medicine
DX: R90.82 White matter disease, unspecified (principal)
CPT/HCPCS: 70551

== ENCOUNTER 2025-08-12 14:27 | Outpatient (AMB) | payer MEDICARE, MEDICAID, SELFPAY ==
[2025-08-12 14:55] VITALS: BP 129/88; PULSE 111; RESP 18; TEMP 36.3; O2SAT 98; BMI 24.5
--- NOTE | 2025-08-12 14:55 | ORTHONT_ITS ---
Vital signs 08/12/25 14:55 Height 1.73 m Height Method Stated Weight 73.51 kg Weight Measurement Method Standing Scale BMI 24.5 BP 129/88 H Blood Pressure Source Automatic Cuff Blood Pressure Location Left Upper Arm Position Sitting Respiration 18 Pulse 111 H Pulse Source Monitor Temp 97.3 F Temp Source Temporal Artery Scan Pulse Oximetry (%) 98 Oxygen Delivery Method Room Air Med/Allergies Allergies & Medications Allergies No Known Allergies Allergy (Verified 08/12/25 14:56) Medication Reconciliation clonazepam 0.5 mg tablet 0.5 mg PO TID PRN Anxiety 09/26/23 [History Confirmed 1 10/13/24] levothyroxine 150 mcg tablet 150 mcg PO ACBR 30 days #30 tabs 02/10/24 [Rx Confirmed 08/12/25] fluoxetine 10 mg capsule 30 mg PO QDAY 03/11/24 [History Confirmed 08/12/25] propranolol 10 mg tablet 10 mg PO Q12H 10/15/24 [History Confirmed 08/12/25] sodium chloride 1,000 mg soluble tablet 2,000 mg PO BID 10/15/24 [History Confirmed 08/12/25] bupropion HCl 300 mg 24 hr tablet, extended release 300 mg PO QDAY 11/05/24 [History Confirmed 08/12/25] docusate sodium 100 mg capsule 100 mg PO DAILY 11/05/24 [History Confirmed 08/12/25] ondansetron HCl 4 mg tablet 4 mg PO TID 11/05/24 [History Confirmed 08/12/25] oxycodone 5 mg tablet 5 mg PO Q6H 11/05/24 [History Confirmed 08/12/25] trazodone 50 mg tablet 50 mg PO QDAY 11/05/24 [History Confirmed 08/12/25] aspirin 81 mg tablet,delayed release 81 mg PO BID #60 tabs 11/06/24 [Rx Confirmed 08/12/25] doxycycline hyclate 100 mg tablet 100 mg PO BID #14 tabs 11/06/24 [Rx Confirmed 08/12/25] sennosides 8.6 mg-docusate sodium 50 mg tablet (Senna-S) 1 tab-cap PO QDAY #30 tabs 11/06/24 [Rx Confirmed 08/12/25] acetaminophen 500 mg tablet (Acetaminophen Extra Strength) 1,000 mg (2 x 500 mg) PO Q6H PRN pain #90 tabs 11/15/24 [Rx Confirmed 08/12/25] gabapentin 300 mg capsule 300 mg PO .qhs #30 caps 11/15/24 [Rx Confirmed 08/12/25] oxycodone 5 mg tablet 5 mg PO Q6H PRN pain #28 tabs 11/15/24 [Rx Confirmed 08/12/25] meloxicam 7.5 mg tablet 7.5 mg PO QDAY #45 tabs 07/01/25 [Rx Confirmed 08/12/25] Assessment and Plan Problem List (1) Bilateral primary osteoarthritis of hip: Status: Acute (2) Intertrochanteric fracture of left hip: Status: Acute (3) Arthritis of knee, left: Status: Acute Advanced Care Planning Discussion Advance care planning discussed with:: patient Office Procedures GNS Level of Care Nursing/Assessment Patient Status: Established Patient Nursing Assessment/Reassesment: Medication Reconciliation, Update PMH in EMR and Vital Signs Coordination of Care: Complex Care and Chronic Disease 1-5, Education Complex Pt/Fam, Consent,records obtained, informed consent, Results/Orders obtained and Staff clarify orders Established Patient Charge Established Patient Point Assignment: 95 Established Patient Point Charge: EP Level 3 (80-115) MA Intake Visit Data Collection New Patient or Established: Established Patient (seen at [facility] within 3 years) Reason for Visit:: PRE OP R COLBY Seen by Clinical Staff ONLY (RN/MA): No PCP or OBGYN visit in last 3 months: Yes Hx Now: No Do You Feel Safe at Home: Yes Authorities Contacted: N/A Questionairres Past Medical History Past Medical History Have you ever been diagnosed with any of the following: Neurological Problems Seizures: No Head Trauma: Yes Cardiology Problems Congestive Heart Failure: No Respiratory Problems Chronic Obstructive Pulmonary Disease (COPD): Yes Asthma: Yes Pneumonia: Yes Smoking: Yes Smoking Cessation Counseling: Yes Smoking Exposure: Yes Genital/Urinary Problems Renal Disease: No Reproductive Problems Previous Pregnancies: Yes Musculoskeletal Problems Fractures: Yes (hip and ribs) Endocrine Problems Diabetes Mellitus Type 1: No Diabetes Mellitus Type 2: No Hypoglycemia: No Hyperthyroidism: No Hypothyroidism: Yes Blood Problems Anemia: Yes Sickle Cell Disease: No Psychologic Problems Recreational Drug Use: Yes Depression: Yes Anxiety: Yes Other Problems Hospitalization: Yes (Electrolytes, sodium and potassium low) Shingles: No Falls: Yes Blood Transfusions: No Blood Transfusion Reaction: No Anesthesia Reactions: No Chicken Pox: Yes Measles: Yes Clostridium Difficile: No Cancer: No Subjective Visit Visit for: follow up visit and hip Immunization / Flu Flu Vaccine in the Last 12 Months: Yes Flu Vaccine Exclusion Criteria: Already Received History of Present Illness Chief complaint: Left hip replacement Personal History Additional comments: PATIENT HAS OWN WALKER Pain Pain level (0-10): 10 Pain duration: ALL DAY Pain location: inside (medial) and outside (lateral) Pain quality: aching Review of Systems Review of Systems: All systems negative unless otherwise noted in HPI.
== END 2025-08-12 15:18 | disposition home or self-care (01) ==
LOC: HODSRG 14:27
PROVIDERS: PCP Family Medicine; Referring Provider Family Medicine; Supervising Provider Orthopaedic Surgery Adult Reconstructive Orthopaedic Surgery; Visit Provider Orthopaedic Surgery Adult Reconstructive Orthopaedic Surgery
DX: M16.0 Bilateral primary osteoarthritis of hip (principal); S72.142D Displaced intertrochanteric fracture of left femur, subsequent encounter for closed fracture with routine healing; X58.XXXD Exposure to other specified factors, subsequent encounter; M17.12 Unilateral primary osteoarthritis, left knee
CPT/HCPCS: 99213; G0463

== ENCOUNTER → 2025-08-12 | Outpatient (CLI) | payer MEDICARE, MEDICAID, SELFPAY ==
--- NOTE | 2025-08-12 15:30 | XR_ITS ---
Examination: CT bilateral lower extremities without intravenous contrast, 2-D sagittal reconstructions. 2-D coronal reconstructions. 3-D reconstructions. Date and time of exam: August 12, 2025, 1528 hours INDICATIONS: Diagnosis unilateral primary right hip osteoarthritis right hip pain several years CTDI: vol (mGy): 10.2 DLP: (mGycm): 659 Technique: Multiple 1.25 mm axial sections of the bilateral lower extremities without intravenous contrast have been obtained. 2-D sagittal and coronal reconstructions have been obtained. 3-D reconstructions have been obtained. Low dose protocols were performed. One or more of the following dose reduction techniques were used; automated exposure control, adjustment of the mA and/or KV according to patient size, use of iterative reconstruction technique. Findings: Severe osteopenia Severe right hip osteoarthritis, severe joint space narrowing and subarticular cyst formation Total left hip arthroplasty with satisfactory alignment Mild to moderate narrowing medial lateral joint spaces bilateral knees Mild narrowing lateral right patellofemoral joint No fractures IMPRESSION: Severe right hip osteoarthritis
== END | disposition home or self-care (01) ==
PROVIDERS: PCP Family Medicine; Referring Provider Orthopaedic Surgery Adult Reconstructive Orthopaedic Surgery; Visit Provider Orthopaedic Surgery Adult Reconstructive Orthopaedic Surgery
DX: M16.11 Unilateral primary osteoarthritis, right hip (principal)
CPT/HCPCS: 72192; 73700

== ENCOUNTER 2025-08-25 05:45 | Day surgery (SDC) | payer MEDICARE, MEDICAID, SELFPAY ==
[2025-08-19 06:59] VITALS: BMI 24.4
[2025-08-19 07:52] LABS: Basophils # (Auto) 0.1 Thou/mm3 (0.0-0.2); Basophils % (Auto) 1 % (0-2.5); Eosinophils # (Auto) 0.3 Thou/mm3 (0.0-0.5); Eosinophils % (Auto) 3 % (0-10); Hematocrit 35.4 % (36.0-46.0); Hemoglobin 12.1 g/dL (12.0-16.0); Immature Granulocytes Auto 0.05 Thou/mm3 (0.00-0.00); Lymphocytes # (Auto) 2.5 Thou/mm3 (1.0-4.8); Lymphocytes % (Auto) 29 % (10-50); Mean Corpuscular HGB Conc 34.2 g/dl (31.0-37.0); Mean Corpuscular Hemoglobin 32.4 pg (25.0-35.0); Mean Corpuscular Volume 95 fL (80-100); Monocytes # (Auto) 0.8 Thou/mm3 (0.0-0.8); Monocytes % (Auto) 10 % (0-12); Neutrophils # (Auto) 5.1 Thou/mm3 (1.8-7.7); Neutrophils % (Auto) 58 % (37-80); Nucleated Red Blood Cell # 0.00 Thou/mm3 (0.00-0.00); Nucleated Red Blood Cell % 0 /100 WBC (0); Platelet Count 603 Thou/mm3 (140-440); RDW Standard Deviation 46.5 fL (36.4-46.3); Red Blood Count 3.73 Miln/mm3 (4.00-5.20); White Blood Count 8.8 Thou/mm3 (3.6-11.0)
[2025-08-19 08:11] LABS: Alanine Aminotransferase 13 U/L (10-49); Albumin, Serum 4.8 gm/dL (3.4-4.8); Albumin/Globulin Ratio 1.8 (1.2-2.2); Alkaline Phosphatase 102 U/L (46-116); Anion Gap 9 (7-16); Aspartate Amino Transferase 24 U/L (0-34); BUN/Creatinine Ratio 14 Ratio (12-20); Bilirubin,Total 0.3 mg/dL (0.3-1.2); Blood Urea Nitrogen 18 mg/dL (9-23); Calcium 9.2 mg/dL (8.3-10.6); Calcium (Corrected) 9.2 mg/dL (8.5-10.1); Carbon Dioxide 30.4 mMol/L (20.0-31.0); Chloride 86 mMol/L (98-107); Creatinine (Component) 1.3 mg/dL (0.6-1.3); Estimated Creatinine Clearance 42.9 mL/min (>60); Globulin 2.7 gm/dL (2.3-3.5); Glucose 95 mg/dL (74-106); Osmolality,Calculated 253 (275-295); Potassium 3.9 mMol/L (3.4-5.1); Sodium 125 mMol/L (136-145); Total Protein 7.5 gm/dL (5.7-8.2); eGFR 45 See Note
[2025-08-19 08:48] LABS: INR 0.9 (0.9-1.3); Partial Thromboplastin Time 31.7 Seconds (22.0-36.0); Prothrombin Time 10.1 Seconds (9.0-12.2)
[2025-08-25] VITALS (14 sets, daily range): BP systolic 88–150; BP diastolic 51–93; PULSE 67–83; RESP 13–20; TEMP 36.1–37.1; O2SAT 95–100; BMI 23.7
[2025-08-25] MEDS: MELOXICAM 7.5 MG TABLET PO (06:41)
[2025-08-25] MEDS: ACETAMINOPHEN 325 MG TABLET 650 MG PO (06:41)
[2025-08-25] MEDS: PREGABALIN 75 MG CAPSULE PO (06:42)
[2025-08-25] MEDS: RINGERS LACTATED 1000 ML 1,000 ML 20 ML IV (06:43)
--- NOTE | 2025-08-25 08:30 | XR_ITS ---
EXAMINATION: AP right hip single view TECHNIQUE: AP right hip crosstable single view Date and time: August 25, 2025, 0935 hours INDICATIONS: Postop hip replacement FINDINGS: Total right hip arthroplasty. Satisfactory alignment. No fracture IMPRESSION: Total right hip arthroplasty with satisfactory alignment
--- NOTE | 2025-08-25 10:00 | XR_ITS ---
Examination: Right hip AP, lateral, AP pelvis 3 views Technique: Hip AP lateral, AP pelvis, 3 views Exam date and time: August 25, 2025, 1129 hours INDICATIONS: Postop right hip arthroplasty FINDINGS: Total right hip arthroplasty. Satisfactory alignment. No fracture. Left hip arthroplasty with satisfactory alignment. Bones of the pelvis intact IMPRESSION: Status post right hip arthroplasty with satisfactory alignment.
--- NOTE | 2025-08-25 10:02 | PD.SUROPNT ---
Date of Procedure 08/25/25 Pre Op Diagnosis right hip osteoarthritis Post Op Diagnosis right hip osteoarthritis Procedure right total hip replacement Findings full thickness cartilage loss Procedure Description Indications: The patient is a 65y.o. year-old with a longstanding history of right hip pain. After considering the patient's condition and the impact of their hip injury on the patient's quality of life and risks of nonoperative treatment, total hip replacement was offered as a reasonable option. Prior to the surgery I discussed the nature of the hip replacement surgery including alternatives to surgery and the purpose of, and indications for proceeding with surgery. I discussed that this surgery is a shared decision between the patient and the surgeon. Risks and benefits and alternatives of the procedure have been explained to the patient and their family. Anesthesia complications and risks include but are not limited to stroke, heart attack, and . The surgical risks include but are not limited to infection, instability/dislocation, bleeding, nerve and blood vessel injury, deep vein thrombosis, pulmonary embolus, stiffness, pain, scar, need for reoperation, leg length discrepancy, thigh numbness, weakness, and mechanical failure of the implant including loosening, metal complications, metal allergy, wear or breakage. I discussed the expected recovery from surgery and the importance of compliance with all our pre and post-operative recommendations in order to maximize the recovery. The patient/family understands the risks of loss of life, loss of limb and, loss of function and wishes to proceed. They understand they are at increased risk for infection given their history of smoking. A signed and witnessed consent was obtained and placed in the chart. Patient Positioning: The patient was placed in the lateral decubitus position on a standard table using a pegboard. An axillary role was placed. All extremities were padded to ensure adequate protection. A jasmine catheter was aseptically inserted. Time Out: A timeout was performed prior to the procedure which verified the correct patient, positioning, operation to be performed, operative site, antibiotics, allergies, imaging, and any other concerns. All parties were in agreement. Procedure in detail: The operative site was cleaned and draped in the usual sterile fashion. A final timeout was performed with all parties in agreement. We first placed percutaneous beth pins above the ASIS and attached a hip array. A modified anterolateral approach to the hip was utilized. A 16cm skin incision was made centered over the greater trochanter in line with the femur. This was taken down through skin and subcutaneous tissue using a 10 blade. Bleeding was controlled using electrocautery. The fascia was identified and split in line with the femur. The charnley retractor was then placed. The abductor insertion was identified and a split made in the anterior 1/3 of the tendon proximally. Retractors were placed and the gluteus minimus was visualized. A capsulotomy was made down to the femoral neck anterior to the minimus. A split was then made in the anterior 1/3 of the vastus lateralis. A retractor was then placed anterior to the femoral shaft, the tendon was tagged with #1 ethibond sutures and a U-shaped split was made in the anterior 1/3 of the abductor tendon being careful to leave enough tendon to re-attach. The hip was then gently externally rotated as the anterior tissues were taken down with the tendon and capsule as one sleeve. Once the anterior tissue had been release off of bone a bone hook was placed and the hip was gently dislocated. Retractors were placed around the femoral neck and the femoral neck osteotomy was then made to freshen up the cut. The femoral head removed. The leg was then placed in extension and retractors were placed anterior and posterior to the acetabulum. We first mapped the acetabulum and pelvis with a probe. The inferior capsule was release to improved visualization and the labrum and osteophytes around the acetabulum were removed. The acetabulum was then reamed to bleeding bone with adequate wall coverage and the cup was impacted into place using the [employer] robot. Screws were then placed followed by the liner which was impacted and confirmed to be seated. We then turned our attention to the femur. The leg was brought into external rotation and the femur was exposed. A canal finder was used followed by a box osteotomy and the femur was broached sequentially. The trial stem was then left in and the hip was trialed using various neck offsets and head sizes until the appropriate size was found based on leg length, stability. Once we were satisfied with the construct a cross-table AP pelvis radiograph was obtained to confirm appropriate positioning and sizing. The hip was then dislocated and the trials were then removed and the final stem impacted into placed. The hip was then again trialed and the appropriate head size identified. The richards taper was then cleaned and dried and the final head impact into place and tested. The acetabulum was irrigated and confirmed to be free of debris. The hip was then reduced and taken through range of motion. The hip was stable in abduction and external rotation, adduction and external rotation, flexion past 90 degrees and internal rotation past 20 degrees. It did not sublux throughout range of motion and no impingement was detected. Leg lengths were appropriately restored based on preoperative leg lengths and intraoperative testing. Lengths and offset were further verified with the robot. We then removed the pins and the greater troch marker. The hip was then copiously irrigated with dilute betadine followed by normal saline. The hip was then injected with the cocktail per protocol The hip was the closed in layers. The abductor tendon was closed with #1 ethibond. The fascia was closed with 0 Vicryl followed by an 0 V-lock. . The deep layer was closed with 0-Vicryl and the subcutaneous layer by a 2-0 Vicryl. The subdermal layer was closed with a 3-0 monocryl. The skin was then cleaned and dried and steri-strips placed followed by a sterile dressing. The drapes were then taken down and the patient was placed supine. Leg lengths were confirmed to be appropriate and the patient's lower extremities were warm and well perfused with brisk capillary refill and palpable pulses. The patient was then awoken, transferred to the [facility] and taken to the PACU in stable condition. They tolerated the procedure well. The patient's family/caregiviers were made aware of their condition. Postoperative plan Activity: WBAT, no hip precautions , no active hip abduction DVT Prophylaxis: aspirin 81mg BID Antibiotics: Standard postoperative antibiotics x 24 hours Implants: Lalo 56 cup, 6 high insignia, 1 screws, standard liner, 40 head Anesthesia GETA Implants Implants comments: lalo Pathology / specimen None Pathology comment: none Estimated Blood Loss 150 Condition Stable Disposition same day Surgeon Sim Hallman MD Surgical Staff Operation Date: 08/25/25 07:30 Case Staff CABLE FERRYBOAT OPERATOR: Teo Elena Jr, RN First Assistant: Debbie Daniels
--- NOTE | 2025-08-25 10:17 | SUR.PHASEI ---
1017 patient arrived to recovery resting comfortably in [facility], able to arouse with verbal prompting-then drifts back to sleep, on oxygen 10L via oxy mask, breathing unlabored, vital signs stable, denies pain and nausea, dressing intact to right hip; prineo, telfa, abd, medipore tape, no bleeding noted, bilateral dorsalis pedis pulses present when palapted, patient has good circulation to right lower extreity; skin color normal for patient and warm to touch, report received from Claire HARPER and Teo BOWLES
--- NOTE | 2025-08-25 10:37 | SUR.PHASEI ---
1037 Telephone order read-back received from Teo BOWLES; for pain- Dilaudid 0.5mg IVP x1 and Fentanyl 50mcg IVP q10min PRN as needed for pain x2 doses for pain scale 4-6, will enter order in EMR and administer per anesthesia provider order
[2025-08-25] MEDS: HYDROmorphone INJ 2 MG/ML VIAL 0.5 MG IVP (10:45)
--- NOTE | 2025-08-25 10:55 | SUR.PHASEI ---
1055 Teo BOWLES at bedside, verbal order read back received for pain; Oxycodone IR 5mg PO x1 tab and Flexeril 5mg PO x1 tab, will enter order in EMR and administer per anesthesia provider order
[2025-08-25] MEDS: fentaNYL CIT INJ 50 mCg/ML AMP 2ML IVP (10:59)
--- NOTE | 2025-08-25 11:03 | SUR.PHASEI ---
1109 patient ate a jello; tolerated well
[2025-08-25] MEDS: oxyCODONE HCL 5 MG IR TAB PO (11:05)
--- NOTE | 2025-08-25 12:40 | SUR.PHASEII ---
1247 patient cleared by physical therapist Robel to proceed with discharge
--- NOTE | 2025-08-25 13:27 | SUR.PHASEII ---
1327 Patient meets discharge criteria from recovery, awake and alert, breathing unlabored, vital signs stable, per patient her pain is tolerable, dressing intact; no bleeding noted, denies nausea, assisted with dressing into her clothing by staff, discharge instructions given to patient and patients son, son signed discharge instructions. Patient given all her belongings prior to discharge, transported with wheelchair and left in private vehicle.
== END 2025-08-25 13:27 | disposition home or self-care (01) ==
PROVIDERS: Anesthesiology; PCP Family Medicine; Referring Provider Orthopaedic Surgery Adult Reconstructive Orthopaedic Surgery; Visit Provider Orthopaedic Surgery Adult Reconstructive Orthopaedic Surgery
PROC: (CPT 27130; principal; 2025-08-25 07:30)
DX: M16.11 Unilateral primary osteoarthritis, right hip (principal)
CPT/HCPCS: 27130; S2900; 36415; 73501; 73502; 80053; 85025; 85610; 85730; 97162; A4217; A4649; C1713; C1776; J0330; J0690; J1100; J1171; J2250; J2405; J2704; J2765; J3010; J3490; J7030; J7120; J7999; A4648; A9270